=== PATIENT | female | born 1985 | race Caucasian/White ===

== ENCOUNTER 2020-01-12 12:07 | Outpatient (CLI) | payer OTHER, SELFPAY ==
[2020-01-12 12:19] LABS: Hematocrit 47.8 % (35.0-49.0); Hemoglobin 15.9 g/dL (12.0-15.0); Mean Corpuscular HGB Conc 33.3 g/dL (32.0-36.0); Mean Corpuscular Hemoglobin 31.1 pg (27.0-31.0); Mean Corpuscular Volume 93.4 fL (78.0-102.0); Mean Platelet Volume 12.6 fl (9.2-11.8); Platelet Count Result 220 K/mm3 (150-420); Red Blood Count 5.12 M/mm3 (4.20-5.40); Red Cell Distribution Width 12.5 % (11.6-14.4); White Blood Count 14.1 K/mm3 (4.8-10.8)
[2020-01-12 13:44] LABS: Alanine Aminotransferase 83 U/L (14-59); Alkaline Phosphatase 129 U/L (46-116); Anion Gap 10 mmol/L (8-16); Aspartate Amino Transferase 30 U/L (15-37); Bilirubin,Total 0.3 mg/dL (0.00-1.00); Blood Urea Nitrogen 6 mg/dL (7-18); Calcium 9.7 mg/dL (8.5-10.1); Carbon Dioxide 26 mmol/L (21-32); Chloride 100 mmol/L (98-108); Cholesterol 164 mg/dL (0-200); Estimated Glomerular Filt Rate > 60; Glucose 339 mg/dL (70-99); HDL Direct 30 mg/dL (40-60); LDL Cholesterol Calculated 73 mg/dL (<130); Osmolality Calculated 292 mOsm/kg (285-295); Sodium 136 mmol/L (136-145); Total Protein 7.4 g/dL (6.4-8.2); Triglycerides 304 mg/dL (0-150)
[2020-01-13 17:59] LABS: Hemoglobin A1C 10.6 % (<5.7)
[2020-01-13 18:08] LABS: Thyroid Stimulating Hormone 1.76 uIU/mL (0.36-3.74)
[2020-01-19 14:21] LABS: Hepatitis A Antibody IgM Nonreactive; Hepatitis B Core Antibody Nonreactive (Nonreactive); Hepatitis B Surface Antigen Nonreactive (Nonreactive); Hepatitis C Signal to Cutoff 0.01 ratio (<1.00); Hepatitis C Virus Antibody Nonreactive (Nonreactive)
== END 2020-01-12 12:08 | disposition home or self-care (01) ==
LOC: CHSLAB 12:10
PROVIDERS: PCP Family Medicine; Visit Provider Family Medicine
DX: Z76.89 Persons encountering health services in other specified circumstances (principal); R74.01 Elevation of levels of liver transaminase levels; E11.9 Type 2 diabetes mellitus without complications
CPT/HCPCS: 36415; 80053; 80061; 80074; 83036; 84443; 85027

== ENCOUNTER 2020-01-19 08:27 | Outpatient (CLI) | payer OTHER, SELFPAY ==
[2020-01-20 13:52] LABS: SARS-CoV-2 RNA PCR Negative
== END 2020-01-19 08:28 | disposition home or self-care (01) ==
LOC: CHSLAB 08:30
PROVIDERS: PCP Family Medicine; Visit Provider Family Medicine
DX: R53.83 Other fatigue (principal); Z20.828 Contact with and (suspected) exposure to other viral communicable diseases
CPT/HCPCS: 87635; C9803; U0003

== ENCOUNTER 2020-07-17 11:10 | Outpatient (CLI) | payer OTHER, SELFPAY ==
[2020-07-17 12:14] LABS: SARS-CoV-2 RNA PCR Negative (Negative)
== END 2020-07-17 11:11 | disposition home or self-care (01) ==
LOC: CHSLAB 11:14
PROVIDERS: PCP Family Medicine; Visit Provider Family Medicine
DX: R05 Cough (principal); Z20.822 Contact with and (suspected) exposure to COVID-19
CPT/HCPCS: C9803; U0003; U0005

== ENCOUNTER 2021-04-26 16:31 | Outpatient (CLI) | payer OTHER, SELFPAY ==
[2021-04-26 17:29] LABS: SARS-CoV-2 Ag Negative (Negative)
== END 2021-04-26 16:32 | disposition home or self-care (01) ==
LOC: CHSLAB 16:34
PROVIDERS: PCP Family Medicine; Visit Provider Family Medicine
DX: Z20.822 Contact with and (suspected) exposure to COVID-19 (principal)
CPT/HCPCS: 87426; C9803

== ENCOUNTER 2021-05-23 16:21 | Outpatient (CLI) | payer OTHER, SELFPAY ==
[2021-05-23 16:50] LABS: Creatinine Urine 41.85 mg/dL (40-278); MALB Creatinine Ratio 39.9 mg/g (0-30); Microalbumin Urine Random 16.7 mg/L
[2021-05-23 16:52] LABS: Hemoglobin A1C 10.3 % (<5.7)
[2021-05-23 17:01] LABS: Alanine Aminotransferase 40 U/L (14-59); Albumin Level 3.7 g/dL (3.4-5.0); Alkaline Phosphatase 114 U/L (46-116); Anion Gap 11 mmol/L (8-16); Aspartate Amino Transferase 13 U/L (15-37); Bilirubin,Total 0.2 mg/dL (0.00-1.00); Blood Urea Nitrogen 10 mg/dL (7-18); Calcium 9.1 mg/dL (8.5-10.1); Carbon Dioxide 26 mmol/L (21-32); Chloride 97 mmol/L (98-108); Estimated Glomerular Filt Rate > 60; Glucose 292 mg/dL (70-99); Osmolality Calculated 288 mOsm/kg (285-295); Potassium 4.5 mmol/L (3.5-5.1); Sodium 134 mmol/L (136-145); Total Protein 7.4 g/dL (6.4-8.2)
== END 2021-05-23 16:22 | disposition home or self-care (01) ==
LOC: CHSLAB 16:23
PROVIDERS: PCP Family Medicine; Visit Provider Family Medicine
DX: E11.9 Type 2 diabetes mellitus without complications (principal)
CPT/HCPCS: 36415; 80053; 82043; 83036

== ENCOUNTER 2021-11-27 12:38 | Outpatient (CLI) | payer OTHER, SELFPAY ==
--- NOTE | ~2021-11-27 | MMUS_ITS ---
EXAMINATION: MM diagnostic milton BI w arash, US breast LT complete HISTORY: Palpable left breast lump TECHNIQUE: Additional 3-D tomosynthesis images of the breasts were performed and synthetic 2-D images were generated. CAD analysis was submitted and interpreted. High resolution complete left breast ult rasound was performed. COMPARISON: None BREAST PARENCHYMAL COMPOSITION: Breast composed of scattered areas of fibroglandular density FINDINGS: MAMMOGRAPHIC FINDINGS: There are no suspicious masses, calcifications or architectural distortion in the right breast to sug gest malignancy. There is a focal mass in the upper outer quadrant of the left breast. There is asymm etry medially in the left breast in the area of palpable concern on CC view. No suspicious calcificat ions. ULTRASOUND: Complete US of all 4 quadrants of the left breast and retroareolar region was reviewed. In the area o f palpable concern at 10:00 there is skin thickening with complex heterogeneous soft tissue with irre gular margins measuring 2.8 x 2.3 x 0.7 cm. There is mixed posterior attenuation. No internal vascula rity. At 2:00, 5 cm from the nipple in the area of mammographic abnormality there is an oval circumsc ribed hypoechoic mass measuring 2.1 x 1.7 x 0.7 cm. There is mixed posterior attenuation. At 2:00, 7 cm from the nipple there is a 7 mm cyst. There are multiple normal-appearing lymph nodes in the left axilla with fatty hilum. Largest lymph node measures 2.5 cm. IMPRESSION: 1. Complex hypoechoic masses at 10:00 in the area of palpable concern and also at 2:00, 5 cm from the nipple. 2. Ultrasound-guided left breast biopsies recommended. BI-RADS category 4, suspicious findings. Reviewed, dictated and finalized at location A. IMPRESSION: 1. Complex hypoechoic masses at 10:00 in the area of palpable concern and also at 2:00, 5 cm from the nipple. 2. Ultrasound-guided left breast biopsies recommended. BI-RADS category 4, suspicious findings.
== END 2021-11-27 12:39 | disposition home or self-care (01) ==
LOC: CHSIMG 12:39
PROVIDERS: PCP Family Medicine; Visit Provider Family Medicine
DX: N63.22 Unspecified lump in the left breast, upper inner quadrant (principal)
CPT/HCPCS: 76641; 77062; 77066; G0279

== ENCOUNTER 2022-03-04 11:49 | Outpatient (CLI) | payer OTHER, SELFPAY ==
[2022-03-04 12:40] LABS: Strep Group A RT-PCR Not Detected (Negative)
== END 2022-03-04 11:50 | disposition home or self-care (01) ==
LOC: CHSLAB 11:53
PROVIDERS: PCP Nurse Practitioner Family; Visit Provider Nurse Practitioner Family
DX: J02.9 Acute pharyngitis, unspecified (principal)
CPT/HCPCS: 87651

== ENCOUNTER 2022-07-05 11:33 | Outpatient (CLI) | payer OTHER, SELFPAY | END 2022-07-05 11:34 | disposition home or self-care (01) | LOC: CHSLAB 11:34 | PROVIDERS: PCP Family Medicine; Visit Provider Family Medicine | DX: R06.83 Snoring (principal); E11.9 Type 2 diabetes mellitus without complications | CPT/HCPCS: 36415; 83036 ==

== ENCOUNTER 2023-01-27 20:52 | Emergency (ER) | payer OTHER, SELFPAY ==
--- NOTE | ~2023-01-27 | XR_ITS ---
EXAM: XR foot LT min 3V DATE: 01/27/2023 21:37 HISTORY: MEDIAL SIDE PAIN AFTER FALL . COMPARISON: 09/23/2017. FINDINGS: Normal mineralization. No fracture or dislocation. No lytic or blastic lesion. Plantar ent hesopathy. Hallux valgus. Mild degenerative change at the first MTP joint. No erosion or periosteal c hange. Soft tissues within normal limits. IMPRESSION: No acute osseous finding in the left foot. Reviewed, dictated and finalized at location K.
[2023-01-27 20:52] VITALS: BP 132/80; PULSE 72; RESP 20; TEMP 36.6; O2SAT 96
--- NOTE | 2023-01-27 21:46 | ED.GENADULT ---
HPI - General Adult General Chief complaint: Extremity Injury, Lower Stated complaint: L foot injury Time Seen by Provider: 01/27/23 21:25 History of Present Illness HPI narrative: The patient is a 37-year-old woman who tripped yesterday on stairs, at 3:00 p.m., resulting in pain in the left foot at the greater toe and 1st metatarsal. The pain is continued tonight. There is no swelling. She is worried about fracture. She is able to ambulate but with a limp. No tenderness or pain elsewhere in the upper lower extremities or neck or back. No loss of consciousness. Related Data Allergies Allergy/AdvReac Type Severity Reaction Status Date / Time No Known Allergies Allergy Verified 12/11/22 07:17 Review of Systems Review of Systems: All systems reviewed & are unremarkable except as noted in HPI and below Constitutional: Constitutional: Denies chills, Denies excessive sweating, Denies fatigue, Denies fever(s), Denies headache(s) and Denies weakness Eyes: Eyes: Denies change in vision and Denies photophobia ENT: Denies dysphagia, Denies dizziness, Denies headache(s), Denies lip swelling, Denies nasal congestion, Denies sore throat and Denies tongue swelling Cardiovascular: Cardiovascular: Denies chest pain, Denies syncope, Denies rapid heart rate and Denies dyspnea Respiratory: Respiratory: Denies cough, Denies dyspnea and Denies wheezing Gastrointestinal: Gastrointestinal: Denies abdominal pain, Denies constipation, Denies dysphagia, Denies diarrhea, Denies nausea and Denies vomiting Genitourinary: Genitourinary: Denies hematuria, Denies urinary frequency, Denies dysuria and Denies urinary urgency Musculoskeletal: Musculoskeletal: Denies back pain, Denies myalgias, Reports arthralgias ( Left great toe), Denies joint swelling and Denies numbness Integumentary/Breasts: Skin/Breast: Denies pruritus, Denies erythema and Denies rash Neurologic: Denies confusion, Denies dizziness, Denies syncope, Denies headache(s), Denies focal weakness, Denies numbness and Denies weakness Psychiatric: Psychiatric: Denies anxiety and Denies confusion Endocrine: Endocrine: Denies excessive sweating and Denies fatigue Hematologic/Lymphatic: Hematologic/Lymphatic: Denies easy bleeding and Denies easy bruising Allergic/Immunologic: Allergic/Immunologic: Denies lip swelling, Denies tongue swelling and Denies wheezing PMFSH Past Medical History Medical History Hyperlipidemia Overweight Type 2 diabetes mellitus Surgical History Surgical History No history of previous surgery Social History Social History Smoking packs per day: 1 Smoking cigarettes per day: 20.0 Years smoked: 15 Smoking pack-years: 15.00 Smoking status: Current every day smoker Tobacco type: cigarettes Exam Const: General: healthy appearing, no acute distress, alert and well nourished Nutritional Appearance: well nourished Orientation/consciousness: patient oriented x3 Limitations: no limitations HENMT: Head: normal to inspection Ears: external ears normal Face/Nose/Sinus: normal facial exam Face and sinus: normal facial exam Mouth: Yes moist mucous membranes Throat: posterior oropharynx normal Eyes: Conjunctivae: conjunctivae normal Pupils: Equal, round and reactive pupils present EOM: EOMs intact bilaterally Neck: Neck: normal visual inspection and no meningeal signs Chest: Chest palpation & inspection: normal inspection of the chest and no tenderness Resp: Effort & Inspection: normal respiratory effort and not labored Auscultation: clear to auscultation bilaterally, no crackles, no rhonchi and no wheezes Cardio: Rate: regular rate Rhythm: regular rhythm Heart sounds: no murmurs GI: Inspection: non-distended GI Palp: Yes Soft to palpation, No Tenderness to palpation present (GI), No
[2023-01-27 21:54] VITALS: BP 142/90; PULSE 64; RESP 16; TEMP 36.6; O2SAT 97
== END 2023-01-27 21:56 | disposition home or self-care (01) ==
PROVIDERS: Emergency Provider Emergency Medicine; PCP Family Medicine
DX: S90.32XA Contusion of left foot, initial encounter (principal); E78.5 Hyperlipidemia, unspecified; E11.9 Type 2 diabetes mellitus without complications; F17.210 Nicotine dependence, cigarettes, uncomplicated; W10.9XXA Fall (on) (from) unspecified stairs and steps, initial encounter
CPT/HCPCS: 73630; 99283

== ENCOUNTER 2023-08-10 19:50 | Emergency (ER) | payer OTHER, SELFPAY ==
--- NOTE | ~2023-08-10 | XR_ITS ---
EXAMINATION: XR foot LT min 3V DATE: 08/10/2023 20:43 INDICATION: Trauma to the left great toe TECHNIQUE: Dorsoplantar, two oblique and lateral views of the left foot were obtained. COMPARISON: None. FINDINGS: Alignment is normal. No fracture. Mild osteoarthritis at the first metatarsophalangeal and a few tars ometatarsal and interphalangeal joints. Again seen is a likely bunion with mild hypertrophic change a t the medial head of the first metatarsal. Small plantar calcaneal spur. Soft tissues are unremarkabl e. IMPRESSION: 1. No acute osseous abnormality. Reviewed, dictated and finalized at location A.
[2023-08-10 19:53] VITALS: BP 117/81; PULSE 107; RESP 18; TEMP 36.7; O2SAT 98
--- NOTE | 2023-08-10 20:02 | ED.LOWEXIN ---
HPI - Extremity Injury (Lower) General Chief Complaint: Extremity Injury, Lower Stated Complaint: Injury to L Big Toe Time Seen by Provider: 08/10/23 20:01 Source: patient Mode of arrival: ambulatory Limitations: no limitations History of Present Illness HPI Narrative: Patient is a 38-year-old female with a left great toe injury after dropping a bowling ball onto the area last night. She has decreased range of motion and pain in the area of the great toe. MD complaint: foot injury ( Left great toe) Onset (ago): day(s) (2) Injury: Left: toes ( great toe) Type of Injury: other ( blunt force direct injury) Place: other ( bowling alley) Severity: mild Severity scale (1-10): 1 Relieving factors: immobilization Exacerbating factors: movement and palpation Context: direct blow Associated symptoms: swelling and able to partially bear weight Other symptoms: none Treatments prior to arrival: NSAIDS Related Data Allergies Allergy/AdvReac Type Severity Reaction Status Date / Time No Known Allergies Allergy Verified 01/28/23 07:38 Review of Systems Review of Systems: All systems reviewed & are unremarkable except as noted in HPI and below Constitutional: Constitutional: Reports no additional constitutional complaints Eyes: Eyes: Reports no additional eye complaints ENT: Reports system reviewed and no additional complaints, except as documented Cardiovascular: Cardiovascular: Reports no additional cardiovascular complaints Respiratory: Respiratory: Reports no additional respiratory complaints Gastrointestinal: Gastrointestinal: Reports no additional gastrointestinal complaints Genitourinary: Genitourinary: Reports no additional female genitourinary complaints Musculoskeletal: Musculoskeletal: Reports no additional musculoskeletal complaints Integumentary/Breasts: Skin/Breast: Reports system reviewed and no additional complaints, except as docu Neurologic: Reports system reviewed and no additional complaints, except as documented Psychiatric: Psychiatric: Reports no additional psychiatric complaints Endocrine: Endocrine: Reports no additional endocrine complaints Hematologic/Lymphatic: Hematologic/Lymphatic: Reports no additional hematologic/lymphatic complaints Allergic/Immunologic: Allergic/Immunologic: Reports no additional allergic/immunologic complaints [facility] Past Medical History Medical History Hyperlipidemia Overweight Type 2 diabetes mellitus Surgical History Surgical History No history of previous surgery Social History Social History Smoking packs per day: 1 Smoking cigarettes per day: 20.0 Years smoked: 15 Smoking pack-years: 15.00 Smoking status: Current every day smoker Tobacco type: cigarettes Exam Const: General: healthy appearing Nutritional Appearance: well nourished Orientation/consciousness: patient oriented x3 HENMT: Head: normal to inspection Ears: external ears normal Face/Nose/Sinus: Normal external nose present Eyes: Conjunctivae: conjunctivae normal Pupils: Equal, round and reactive pupils present EOM: EOMs intact bilaterally Neck: Neck: normal visual inspection Chest: Chest palpation & inspection: normal inspection of the chest Resp: Effort & Inspection: normal respiratory effort and not labored Auscultation: clear to auscultation bilaterally Cardio: Rate: regular rate Rhythm: regular rhythm Heart sounds: no murmurs GI: Inspection: non-distended GI Palp: Yes Soft to palpation and No Tenderness to palpation present (GI) Auscultation: normal bowel sounds : General: Yes bladder normal to palpation Back/Spine/Pelvis: Back: no CVA tenderness Skin: General skin exam: normal color Rashes: no rashes Wounds: wound noted Other: left great toe has ecchymosis and swelling and tendernes
[2023-08-10 21:12] VITALS: BP 125/82; PULSE 92; RESP 18; TEMP 36.2; O2SAT 97
== END 2023-08-10 21:11 | disposition home or self-care (01) ==
PROVIDERS: Emergency Provider Emergency Medicine; PCP Family Medicine
DX: S90.32XA Contusion of left foot, initial encounter (principal); W21.09XA Struck by other hit or thrown ball, initial encounter; E78.5 Hyperlipidemia, unspecified; E11.9 Type 2 diabetes mellitus without complications; F17.210 Nicotine dependence, cigarettes, uncomplicated
CPT/HCPCS: 73630; 99283

== ENCOUNTER 2024-03-17 16:56 | Outpatient (CLI) | payer OTHER, SELFPAY ==
[2024-03-17 18:04] LABS: Alanine Aminotransferase 100 U/L (14-59); Albumin Level 3.8 g/dL (3.4-5.0); Alkaline Phosphatase 101 U/L (46-116); Anion Gap 10 mmol/L (4-12); Aspartate Amino Transferase 37 U/L (15-37); Bilirubin,Total 0.2 mg/dL (0.00-1.00); Blood Urea Nitrogen 8 mg/dL (7-18); Calcium 9.5 mg/dL (8.5-10.1); Carbon Dioxide 28 mmol/L (21-32); Chloride 102 mmol/L (98-108); Cholesterol 172 mg/dL (0-200); Estimated Glomerular Filt Rate > 60; Glucose 159 mg/dL (70-99); HDL Direct 40 mg/dL (40-60); LDL Cholesterol Calculated 48 mg/dL (<130); Magnesium 1.5 mg/dL (1.8-2.4); Osmolality Calculated 291 mOsm/kg (285-295); Sodium 140 mmol/L (136-145); Total Protein 7.2 g/dL (6.4-8.2); Triglycerides 421 mg/dL (0-150); Vitamin B12 441 pg/mL (193-986)
[2024-03-17 18:07] LABS: LDL Cholesterol Direct 81 mg/dL (0-130)
[2024-03-19 04:14] LABS: Vitamin D 25 Hydroxy 32 ng/mL (30-100)
== END 2024-03-17 16:57 | disposition home or self-care (01) ==
LOC: CHSLAB 16:57
PROVIDERS: PCP Nurse Practitioner Family; Visit Provider Nurse Practitioner Family
DX: E11.9 Type 2 diabetes mellitus without complications (principal); E78.5 Hyperlipidemia, unspecified; Z79.899 Other long term (current) drug therapy
CPT/HCPCS: 36415; 80053; 80061; 82306; 82607; 83721; 83735

== ENCOUNTER 2024-07-23 07:07 | Outpatient (CLI) | payer OTHER, SELFPAY ==
--- OUTSIDE RECORDS SUMMARY | 2024-07-23 07:10 | XMS_ITS | Referral Summary ---
Author Organization [facility] Virtual Care Address [address] [place] [phone] Phone Care Team Providers Care Sole Molder Name Role Phone Germain Stearns DO Primary Care Provider Allergies No known active allergies Medications buPROPion SR (WELLBUTRIN SR) 150 mg 12 hr tablet Take 1 tablet (150 mg total) by mouth every 12 (twelve) hours 2 Active levonorgestreL (MIRENA) IUD 20 mcg by intrauterine route Active metFORMIN (GLUCOPHAGE) 1,000 mg tablet Take 1 tablet (1,000 mg total) by mouth 2 (two) times a day 2 Active Trulicity 3 mg/0.5 mL pen injector [address] (PROTONIX) 40 mg EC tablet TAKE 1 TABLET B Y MOUTH EVERY MORNING FOR 6 WEEKS 3 Active Active Problems No known active problems Social History Tobacco Use Types Packs/Day Years Used Date Smoking Tobacco: Former Cigarettes Tobacco Cessation:Counseling Given: Not Answered PHQ-2 Answer Date Recorded PHQ-2 Total Score (If total score is 3 or more points, staff should administer the PHQ-9) 0 01/01/2023 Comments No Sex and Gender Information Value Date Recorded Sex Assigned at Not on file Legal Sex Female 11:22 AM CDT Gender Identity Not on file Sexual Orientation Not on file Last Filed Vital Signs Vital Sign Reading Time Taken Comments Blood Pressure 126/80 01/01/2023 8:10 AM CDT Pulse 90 01/01/2023 8:10 AM CDT Temperature 37.3 C (99.1 F) 12/12/2021 12:25 PM CDT Respiratory Rate 16 12/12/2021 12:25 PM CDT Oxygen Saturation 100% 12/12/2021 12:25 PM CDT Inhaled Oxygen Concentration - - Weight 92.1 kg (203 lb 1.6 oz) 01/01/2023 8:10 A M CDT Height 162.6 cm (5' 4 ) 03/12/2024 2:49 PM LABOR/EXCAVATOR Body Mass Index 34.86 01/01/2023 8:10 AM CDT Plan of Treatment Not on file Medical Devices Implanted Type Area Rider Ticket Worker Device Identifier Shelf Expiration Date Model / Serial / Lot Bard Peripheral Vascular Ultraclip Bard 17ga 12cm 2 Trigger Permanent Ultrasound [id number] - [id number] - [id number] Implanted:Qty: 1 on 12/12/2021 by Dimitri Garcia MD at [facility] Breast Left: Breast Bard Peripheral Vascular 05/04/2024 [id number] / [id number] / Procedures Procedure Name Priority Date/Time Associated Diagnosis Comments PAP AND HPV, REFLEX TO HPV GENOTYPES Routine 01/01/2023 9:28 AM CDT Well woman exam from Last 3 Months or Most Recently Relevant to Health Maintenance Results * Pap and HPV, reflex to HPV Genotypes (01/01/2023 9:28 AM CDT) CLINICAL INFORMATION: [facility] Comment:None given LMP [facility] [employer] [facility] Comment:None given Previous Pap [facility] Comment:None given Prev. Bx [facility] [employer] [facility] Comment:None given SOURCE: [employer] [facility] Comment:Cervix, Endocervix Pap, specimen adequacy [facility] Comment: Satisfactory for evaluation. Endocervical/transformation zone component present. Age and/or menstrual status not provided HPV interp [facility] Comment: Cytology Results: Negative for intraepithelial lesion or malignancy. Wardrobe Specialist [facility] Comment: BES, CT(ASCP) CT screening location: [place] [address] [place] [id number] Comment [facility] [employer] [facility] Comment: EXPLANATORY NOTE: The Pap is a screening test for cervical cancer. It is not a diagnostic test and is subject to false negative and false positive results. It is most reliable when a satisfactory sample, regularly obtained, is submitted with relevant clinical findings and history, and when the Pap result is evaluated along with historic and current clinical information. EFFECTIVE MARCH 03, 2023, the version of ThinPrep you ordered, commonly known as manual ThinPrep, will be DISCONTINUED. An alternative form of ThinPrep, called ThinPrep Imaging, will continue to be available. For a copy of the client communication (TIS Client Letter) showing TIS test codes, see [email or web address], and navigate to Well-Woman>Physician Materials>TIS Client Letter. You can also call for test code assistance. Human papillomavirus DNA, High Risk E6/E7 Not Detected NOT DETECTED [employer] /Olamide COLLIER Comment: Not Detected High Risk HPV types (16,18,31,33,35,39,45,51,52, 56,58,59,66,68) were not detected. Other HPV types which cause anogenital lesions may be present. The significance of the other types of HPV in malignant processes has not been established. Methodology: Real Time PCR Thin prep 01/01/2023 9:28 AM CDT 01/02/2023 2:54 AM CDT Shelbie King PREMIX OPERATOR [facility] CYTOLOGY ORDERABLES [facility] al Result [facility] [address] [place] [address] Beni Hightower/[place] [address] [facility] [place] [phone] from Last 3 Months or Most Recently Relevant to Health Maintenance Insurance [employer] Care Teams Sole Molder Relationship Specialty Start Date End Date Germain Stearns DO [address] [place] [address] PCP - General 12/12/21
--- OUTSIDE RECORDS SUMMARY | 2024-07-23 07:10 | XMS_ITS | Clinical Summary ---
Author Organization [facility] Address [address] [place] [address] Care Team Providers Care Ore Bridge Operator Name Role Phone Susan Styles MD Primary Care Provider [phone] Allergies No known active allergies Medications metFORMIN 1000 MG tabletIndicatio ns:Diabetes Mellitus,states last took this med 2 weeks ago 1,000 mg 2 (two) times daily with meals. Indications: Diabetes, states last took this med 2 weeks ago 3 9 Active levonorgestrel (MIRENA, 52 MG,) 20 MCG/24HR IUDIndications: control 20 mcg by Intrauterine route. Indications: control Active traMADol 50 MG tabletIndicatio ns:Acute Pain < 7 Day Supply Take 1 tablet (50 mg total) by mouth every 6 (six) hours as needed for Pain. Indications: Acute Pain < 7 Day Supply 5 tablet 0 Active Acetaminophen 500 MG Cap Take 1 tablet by mouth every 6 (six) hours as needed. 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 Condyloma 05/13/2019 Family History * Patient is adopted Medical History Relation Comments COPD Mother Diabetes Mother Relation Status Comments Father Alive Mother Alive Social History Tobacco Use Types Packs/Day Years Used Date Smoking Tobacco: Every Day Cigarettes 1 14 Smokeless Tobacco: Never Alcohol Use Standard Drinks/Week Comments Yes 0 (1 standard drink = 0.6 oz pur e alcohol) sometimes Comments No Sex and Gender Information Value Date Recorded Sex Assigned at Not on file Legal Sex Female 9:22 PM BEAUTY PARLOR CLEANER Gender Identity Not on file Sexual Orientation Not on file Last Filed Vital Signs Vital Sign Reading Time Taken Comments Blood Pressure 121/78 05/13/2019 4:30 PM BEAUTY PARLOR CLEANER Pulse 85 05/13/2019 4:30 PM BEAUTY PARLOR CLEANER Temperature 36.2 C (97.2 F) 05/13/2019 3:00 PM BEAUTY PARLOR CLEANER Respiratory Rate 16 05/13/2019 4:30 PM BEAUTY PARLOR CLEANER Oxygen Saturation 94% 05/13/2019 4:30 PM BEAUTY PARLOR CLEANER Inhaled Oxygen Concentration - - Weight 88.5 kg (195 lb) 05/06/2019 10:55 AM BEAUTY PARLOR CLEANER Height 162.6 cm (5' 4 ) 05/06/2019 10:56 AM BEAUTY PARLOR CLEANER Body Mass Index 33.47 05/06/2019 10:55 AM BEAUTY PARLOR CLEANER Plan of Treatment Health Maintenance Due Date Last Done Comments Annual Physical 1989 Pneumococcal Vaccine: Pediat rics (0 to 5 Years) and At-Risk Patients (6 to 49 Years) (1 of 2 - PCV) 1992 Hepatitis C 2004 DTaP, Tdap and Td Vaccines ( 1 - Tdap) 2005 Hepatitis B Vaccines (1 of 3 - 19+ 3-dose series) 2005 Cervical Cancer Screening Pa p with HPV Testing (Age 30 to 64) Every 5 Years 2016 Cervical Cancer Screening Pa p Smear (Age 30 to 64) Every 3 Years 09/23/2017 09/23/2014 Cervical Cancer Screening with HPV 09/23/2017 COVID-19 Vaccine (2023-2 5 season) 2023 HPV Vaccines Aged Out No longer eligi ble based on patient's age to complete this topic Meningococcal B Vaccine Aged Out No l onger eligible based on patient's age to complete this topic Meningococcal Vaccine Aged Out No adrienne rufina eligible based on patient's age to complete this topic RSV Immunizations Under 20 Months Aged Out No longer eligible based on patient's age to complete this topic Procedures Procedure Name Priority Date/Time Associated Diagnosis Comments THINPREP IMAGING SYSTEM PAP Routine 09/23/2014 12:00 AM CDT from Last 3 Months or Most Recently Relevant to Health Maintenance Results * (ABNORMAL) THINPREP IMAGING SYSTEM PAP (09/23/2014 12:00 AM CDT) THIN PREP PAP (A) [facility] UP TO EPIC CONVERSION Comment: Patient Name: GLORIA GARCIA Specimen #: [id number] Procedure Date: 09/23/2014 /Age: 4 1985 (Age: 29) Gender: F Accessioned: 09/27/2014 Address: [address] [place] [id number] Reported: 09/30/2014 Encounter: [id number] [facility] Physician(s): KRISTINE URENA, INDUSTRIAL CONTROLLER / WASHING MACHINE LOADER AND PULLER : CYTOPATHOLOGY - GYNECOLOGIC REPORT Diagnosis: TEST NAME: THINPREP PAP WITH CRYPTOLOGIC TECHNICIAN TECHNICAL, REFLEX HPV-ASCUS ONLY INTERPRETATION/RESULT: EPITHELIAL CELL ABNORMALITY: ATYPICAL SQUAMOUS CELLS OF UNDETERMINED SIGNIFICANCE. SPECIMEN FORWARDED TO MICROBIOLOGY FOR FURTHER HPV DNA EVALUATION. STATEMENT OF ADEQUACY: SATISFACTORY FOR EVALUATION; ENDOCERVICAL/TRANSFORMATION ZONE COMPONENT PRESENT. [facility] DEN GARCIA MD [facility] [place]/09/30/2014 Report Electronically Signed Procedures/Addenda HPV DNA: ABNORMAL Interpretation: HPV DNA, HIGH RISK: POSITIVE THIS HIGH-RISK HPV TEST DETECTS FOURTEEN HIGH-RISK TYPES (16, 18, 31, 33, 35, 39, 45, 51, 52, 56, 58, 59, 66, 68) WITHOUT DIFFERENTIATION. Monserrat Cortez HPV DNA Electronically Signed [facility]/ 10/07/2014 Specimen: THINPREP PAP WITH CRYPTOLOGIC TECHNICIAN TECHNICAL, REFLEX HPV-ASCUS ONLY Clinical Diagnosis and History Date of Last Menstrual Period: MIRENA Specimen Source: Cervical Other Clinical Conditions: OTHER: PREVIOUS PAP NORMAL PAP SMEARS ARE SCREENING TESTS SUBJECT TO BOTH FALSE NEGATIVE AND FALSE POSITIVE RESULTS EVIDENCED BY DATA PUBLISHED IN THE MEDICAL LITERATURE. YOUR PATIENT'S RESULT SHOULD BE INTERPRETED IN THIS CONTEXT, TOGETHER WITH THE PATIENT'S HISTORY AND CLINICAL FINDINGS. 09/23/2014 Narrative [facility] TO EPIC CONVERSION - 09/23/2014 12:00 AM CDT [AUTO]: This patient was manually matched. us Kristine Urena NP PATHOLOGY/CYTOLOGY ORDERABLES E dited Result - Final [facility] TO EPIC CONVERSION from Last 3 Months or Most Recently Relevant to Health Maintenance Insurance MEDICAID Advance Directives * Full Code (Latest Code Status on File) Date Activated Date Inactivated Comments 05/13/2019 4:01 PM 05/13/2019 6:48 PM Care Teams Ore Bridge Operator Relationship Specialty Start Date End Date Susan Styles MD [address] [place] [id number] PCP - General INTERNAL MEDICINE 12/28/18
--- OUTSIDE RECORDS SUMMARY | 2024-07-23 07:10 | XMS_ITS | Clinical Summary ---
Author Organization [facility] Virtual Care Address [address] [place] [phone] Phone Care Team Providers Care Art Librarian Name Role Phone Germain Stearns DO Primary [...] Active Active Problems No known active problems Surgical History Surgery Date Site/Laterality Comments BREAST BIOPSY 04/07/2009 - 04/06/2010 Left benign needle bx done in dr office, no scar BREAST BIOPSY 12/12/2021 Left benign uls guided bx CHOLECYSTECTOMY Medical History Medical History Date Comments Smoking Type 2 diabetes mellitus (HCC) 2018 Family History * Patient is adopted Medical History Relation Name Comments Breast cancer Maternal Grandmother Cervical cancer Maternal Grandmother Ovarian cancer Neg Hx Thyroid cancer Neg Hx Relation Name Status Comments Maternal Grandmother Social History Tobacco Use Types Packs/Day Years [...] on file Sexual Orientation Not on file Obstetrics History Para Term AB IAB SAB Ectopic Multiple Livin g Live Births 2 2 2 2 2 Date Outcome GA Total Labor Labor/2nd/3rd Weight Sex Type Anes PTL Shanti A1 A5 Name Clin 2008 Term Vaginal Living 2009 Term Vaginal Living Last Filed Vital Signs Vital Sign Reading [...] cm (5' 4 ) 03/12/2024 2:49 PM OIL CHANGER Body Mass Index 34.86 01/01/2023 8:10 AM CDT Plan of Treatment Health Maintenance Due Date Last Done Comments Hepatitis C Screening 1986 DTaP/Tdap/Td Vaccine (1 - Tdap) 1997 Varicella Vaccines (1 of 2 - 13+ 2-dose series) 08/05/1999 Hepatitis B Screening 2004 HPV Vaccines (2 - 3-dose SCD M series) 02/24/2020 01/27/2020 Influenza Vaccine (#1) 2023 Cervical Cancer Screening 01/02/2024 01/01/2023 Depression Screening 01/02/2024 01/01/2023 Regular Well Visit/Exam 18-64 01/02/2024 01/01/2023 Pneumococcal vaccine <65 Aged Out No longer eligible based on patient's age to complete this topic Medical Devices Implanted Type Area Service Order Clerk Device Identifier Shelf Expiration Date Model / Serial / Lot Bard Peripheral Vascular Ultraclip Bard 17ga 12cm 2 Trigger Permanent Ultrasound [id number] - [id number] - [id number] Implanted:Qty: 1 on 12/12/2021 by Dimitri Garcia MD at [facility] Breast Left: Breast Bard Peripheral Vascular 05/04/2024 [id number] / [id number] / Procedures Procedure Name Priority Date/Time Associated Diagnosis Comments PAP AND HPV, REFLEX TO HPV GENOTYPES Routine 01/01/2023 9:28 AM CDT Well woman exam from Last 3 Months or Most Recently Relevant to Health Maintenance Results * Pap and HPV, reflex to HPV Genotypes (01/01/2023 9:28 AM CDT) CLINICAL INFORMATION: [facility] Comment:None given LMP [facility] Comment:None given Previous Pap [facility] Comment:None given Prev. Bx [facility] [employer] Comment:None given SOURCE: [facility] Comment:Cervix, Endocervix Pap, specimen adequacy [facility] Comment: Satisfactory for evaluation. Endocervical/transformation zone component present. Age and/or menstrual status not provided HPV interp [facility] Comment: Cytology Results: Negative for intraepithelial lesion or malignancy. Product Scientist [facility] Comment: BES, CT(ASCP) CT screening location: [place] [address] [place] [address] Comment [facility] Comment: EXPLANATORY NOTE: The Pap is [...] Client Letter) showing TIS test codes, see www.[email or web address]/Resources, and navigate to Well-Woman>Physician Materials>TIS Client Letter. You can also call for test code assistance. Human papillomavirus DNA, High Risk E6/E7 Not Detected NOT DETECTED [facility] /Olamide [facility] Comment: Not Detected High Risk HPV types (16,18,31,33,35,39,45,51,52, 56,58,59,66,68) were not detected. Other HPV types which cause anogenital lesions may be present. The significance of the other types of HPV in malignant processes has not been established. Methodology: Real Time PCR Thin prep 01/01/2023 9:28 AM CDT 01/02/2023 2:54 AM CDT Shelbie King RELAY ADJUSTER LAB CYTOLOGY ORDERABLES Fin al Result [facility] [address] [place] [address] Viigo/[place] [address] [facility] [place] [address] from Last 3 Months or Most Recently Relevant to Health Maintenance Insurance [facility] Care Teams Art Librarian Relationship Specialty Start Date End Date Germain Stearns DO [address] [place] [address] PCP - General 12/12/21
--- OUTSIDE RECORDS SUMMARY | 2024-07-23 07:10 | XMS_ITS | Encounter Summary ---
Author Organization [facility] Healthcare Address [address] [place] [address] Care Team Providers Care Head Grower Name Role Phone Gremain Stearns DO Primary Care Provider Encounter Details Date Type Department Care Team (Late st Contact Info) Description 01/16/2022 Telephone [facility] [address] [place] [phone] Nell Reyes, MARISA Social History Tobacco Use Types Packs/Day Years Used Date Smoking Tobacco: Never Assessed Comments No Sex and Gender Information Value Date Recorded Sex Assigned at Not on file Legal Sex Female 11:22 AM CDT Gender Identity Not on file Sexual Orientation Not on file documented as of this encounter Plan of Treatment Not on file documented as of this encounter Visit Diagnoses Not on filedocumented in this encounter Care Teams Head Grower Relationship Specialty Start Date End Date Germain Stearns DO [address] [place] [address] PCP - General 12/12/21 documented as of this encounter
[2024-07-23 07:20] LABS: Basophils Absolute Auto 0.03 K/mm3 (0.00-0.10); Basophils Percent Auto 0.3 % (0.0-1.0); Eosinophils Absolute Auto 0.13 K/mm3 (0.02-0.50); Eosinophils Percent Auto 1.3 % (1.0-6.0); Hematocrit 38.5 % (35.0-49.0); Hemoglobin 11.8 g/dL (12.0-15.0); Immature Granulocyte Absolute 0.03 K/mm3 (0.00-0.00); Immature Granulocyte Percent A 0.3 % (0.0-0.0); Lymphocytes Absolute Auto 1.85 K/mm3 (1.10-4.50); Lymphocytes Percent Auto 18.9 % (18.0-42.0); Mean Corpuscular HGB Conc 30.6 g/dL (32-36); Mean Corpuscular Volume 84.8 fL (78.0-102.0); Mean Platelet Volume 11.7 fl (9.2-11.8); Monocytes Absolute Auto 0.72 K/mm3 (0.10-0.90); Monocytes Percent Auto 7.4 % (2.0-11.0); Neutrophils Absolute Auto 7.01 K/mm3 (1.70-7.20); Neutrophils Percent Auto 71.8 % (50.0-70.0); Platelet Count Result 256 K/mm3 (150-420); Red Blood Count 4.54 M/mm3 (4.20-5.40); Red Cell Distribution Width 13.8 % (11.6-14.4); White Blood Count 9.8 K/mm3 (4.8-10.8)
[2024-07-23 07:30] LABS: Creatinine Urine 132.35 mg/dL (40-278); MALB Creatinine Ratio 9.8 mg/g (0-30); Microalbumin Urine Random < 13.0 mg/L
[2024-07-23 07:31] LABS: Hemoglobin A1C 7.7 % (<5.7)
[2024-07-23 07:56] LABS: Alanine Aminotransferase 48 U/L (14-59); Albumin Level 3.7 g/dL (3.4-5.0); Alkaline Phosphatase 115 U/L (46-116); Anion Gap 8 mmol/L (4-12); Aspartate Amino Transferase 26 U/L (15-37); Bilirubin,Total 0.3 mg/dL (0.00-1.00); Blood Urea Nitrogen 11 mg/dL (7-18); Calcium 9.5 mg/dL (8.5-10.1); Carbon Dioxide 29 mmol/L (21-32); Chloride 102 mmol/L (98-108); Cholesterol 104 mg/dL (0-200); Creatine Kinase 31 U/L (26-192); Estimated Glomerular Filt Rate > 60; Glucose 196 mg/dL (70-99); HDL Direct 43 mg/dL (40-60); LDL Cholesterol Calculated 24 mg/dL (<130); Magnesium 1.6 mg/dL (1.8-2.4); Osmolality Calculated 292 mOsm/kg (285-295); Potassium 4.4 mmol/L (3.5-5.1); Sodium 139 mmol/L (136-145); Total Protein 7.5 g/dL (6.4-8.2); Triglycerides 183 mg/dL (0-150)
[2024-07-23 07:58] LABS: Thyroid Stimulating Hormone Reflex 5.39 u/IU/mL (0.36-3.74)
[2024-07-23 08:15] LABS: Free T4 Free Thyroxine Reflex 0.97 ng/dL (0.76-1.46)
[2024-07-25 07:19] LABS: Hepatitis B Surface Antigen NON-REACTIVE (NON-REACTIVE)
[2024-07-25 07:38] LABS: Hepatitis A Antibody IgM NON-REACTIVE (NON-REACTIVE); Hepatitis B Core Antibody NON-REACTIVE (NON-REACTIVE); Hepatitis C Virus Antibody NON-REACTIVE (NON-REACTIVE)
== END 2024-07-23 07:08 | disposition home or self-care (01) ==
LOC: CHSLAB 07:08
PROVIDERS: PCP Nurse Practitioner Family; Visit Provider Nurse Practitioner Family
DX: Z00.00 Encounter for general adult medical examination without abnormal findings (principal); E11.9 Type 2 diabetes mellitus without complications; R25.2 Cramp and spasm; R74.01 Elevation of levels of liver transaminase levels; E78.5 Hyperlipidemia, unspecified
CPT/HCPCS: 36415; 80053; 80061; 80074; 82043; 82550; 83036; 83735; 84439; 84443; 85025

== ENCOUNTER 2024-07-30 16:41 | Outpatient (NON) | payer OTHER, SELFPAY ==
--- OUTSIDE RECORDS SUMMARY | 2024-07-30 16:43 | XMS_ITS | Encounter Summary ---
Author Organization [facility] Healthcare Address [address] [place] [address] Care Team Providers Care Oyster Tonger Name Role Phone Germain Stearns DO Primary Care Provider Encounter Details Date Type Department Care Team (Late st Contact Info) Description 01/16/2022 Telephone [facility] [address] [place] [phone] Nell Reyes, MARISA Social History Tobacco Use [...] on filedocumented in this encounter Care Teams Oyster Tonger Relationship Specialty Start Date End Date Germain Stearns DO [address] [place] [address] PCP - General 12/12/21 documented as of this encounter
--- OUTSIDE RECORDS SUMMARY | 2024-07-30 16:43 | XMS_ITS | Clinical Summary ---
Author Organization [facility] Virtual Care Address [address] [place] [phone] Phone Care Team Providers Care Shoer Name Role Phone Germain Stearns DO Primary [...] cm (5' 4 ) 03/12/2024 2:49 PM CLIENT ACCOUNT REPRESENTATIVE Body Mass Index 34.86 01/01/2023 8:10 AM CDT Plan of Treatment Health Maintenance Due Date Last Done Comments Hepatitis C Screening 1986 DTaP/Tdap/Td Vaccine (1 - Tdap) 1997 Varicella Vaccines (1 of 2 - 13+ 2-dose series) 08/05/1999 Hepatitis B Screening 2004 HPV Vaccines (2 - 3-dose SCD M series) 02/24/2020 01/27/2020 Cervical Cancer Screening 01/02/2024 01/01/2023 Depression Screening 01/02/2024 01/01/2023 Regular Well Visit/Exam 18-64 01/02/2024 01/01/2023 Influenza Vaccine (Season Ended) 2024 Pneumococcal vaccine <65 Aged Out No longer eligible based on patient's age to complete this topic Medical Devices Implanted Type Area Terrazzo Journeyman Device Identifier Shelf Expiration Date Model / Serial / Lot Bard Peripheral Vascular Ultraclip Bard 17ga 12cm 2 Trigger Permanent Ultrasound [id number] - [id number] - [id number] Implanted:Qty: 1 on 12/12/2021 by Dimitri Garcia MD at [facility] Breast Left: Breast Bard Peripheral Vascular 05/04/2024 [id number] / [id number] / Procedures Procedure Name Priority Date/Time Associated Diagnosis Comments PAP AND HPV, REFLEX TO HPV GENOTYPES Routine 01/01/2023 9:28 AM CDT Well woman exam from Last 3 Months or Most Recently Relevant to Health Maintenance Results * Pap and HPV, reflex to HPV Genotypes (01/01/2023 9:28 AM CDT) CLINICAL INFORMATION: [facility] Comment:None given LMP [facility] Comment:None given Previous Pap [facility] Comment:None given Prev. Bx [facility] Comment:None given SOURCE: [facility] Comment:Cervix, Endocervix Pap, specimen adequacy [facility] Comment: Satisfactory for evaluation. Endocervical/transformation zone component present. Age and/or menstrual status not provided HPV interp [facility] Comment: Cytology Results: Negative for intraepithelial lesion or malignancy. Fondant Cooker Que [facility] Comment: BES, CT(ASCP) CT screening location: [place] [address] [place] [address] Comment [facility] Comment: EXPLANATORY NOTE: The Pap is a [...] Client Letter) showing TIS test codes, see [email or web address]/Resources, and navigate to Well-Woman>Physician Materials>TIS Client Letter. You can also call for test code assistance. Human papillomavirus DNA, High Risk E6/E7 Not Detected NOT DETECTED [facility] /Olamide [facility] Comment: Not Detected High Risk HPV types (16,18,31,33,35,39,45,51,52, 56,58,59,66,68) were not detected. Other HPV types which cause anogenital lesions may be present. The significance of the other types of HPV in malignant processes has not been established. Methodology: Real Time PCR Thin prep 01/01/2023 9:28 AM CDT 01/02/2023 2:54 AM CDT Shelbie King INTEGRATED CIRCUITS INSPECTOR LAB CYTOLOGY ORDERABLES Fin al Result [facility] [address] [place] [address] Shibumi/[place] [address] [place] [address] from Last 3 Months or Most Recently Relevant to Health Maintenance Insurance [facility] Care Teams Shoer Relationship Specialty Start Date End Date Germain Stearns DO [address] [place] [address] PCP - General 12/12/21
--- OUTSIDE RECORDS SUMMARY | 2024-07-30 16:43 | XMS_ITS | Referral Summary ---
Author Organization [facility] Virtual Care Address [address] [place] [phone] Phone Care Team Providers Care Stepdown Nurse Name Role Phone Germain Stearns DO Primary [...] cm (5' 4 ) 03/12/2024 2:49 PM EPIC ANESTHESIA ANALYST Body Mass Index 34.86 01/01/2023 8:10 AM CDT Plan of Treatment Not on file Medical Devices Implanted Type Area Emblem Drawer In Device Identifier Shelf Expiration Date Model / Serial / Lot Bard Peripheral Vascular Ultraclip Bard 17ga 12cm 2 Trigger Permanent Ultrasound [id number] - [id number] - [id number] Implanted:Qty: 1 on 12/12/2021 by Dimitri Garcia MD at [facility] Breast Left: Breast Bard Peripheral Vascular 05/04/2024 [id number] / [id number] / Procedures Procedure Name Priority Date/Time Associated Diagnosis Comments PAP AND HPV, REFLEX TO HPV GENOTYPES Routine 01/01/2023 9:28 AM CDT Well woman exam from Last 3 Months or Most Recently Relevant to Health Maintenance Results * Pap and HPV, reflex to HPV Genotypes (01/01/2023 9:28 AM CDT) CLINICAL INFORMATION: [facility] Comment:None given LMP [facility] Comment:None given Previous Pap [facility] Comment:None given Prev. Bx [facility] Comment:None given SOURCE: [facility] [employer] [facility] Comment:Cervix, Endocervix Pap, specimen adequacy [facility] Comment: Satisfactory for evaluation. Endocervical/transformation zone component present. Age and/or menstrual status not provided HPV interp [facility] Comment: Cytology Results: Negative for intraepithelial lesion or malignancy. Oracle Ebs Consultant Harpreet [facility] Comment: BES, CT(ASCP) CT screening location: [place] [address] [place] [id number] Comment [facility] Comment: EXPLANATORY NOTE: The Pap is [...] Client Letter) showing TIS test codes, see www.[employer]/Resources, and navigate to Well-Woman>Physician Materials>TIS Client Letter. You can also call for test code assistance. Human papillomavirus DNA, High Risk E6/E7 Not Detected NOT DETECTED [facility] /Olamide [facility] Comment: Not Detected High Risk HPV types (16,18,31,33,35,39,45,51,52, 56,58,59,66,68) were not detected. Other HPV types which cause anogenital lesions may be present. The significance of the other types of HPV in malignant processes has not been established. Methodology: Real Time PCR Thin prep 01/01/2023 9:28 AM CDT 01/02/2023 2:54 AM CDT Shelbie King STEEL HANGER LAB CYTOLOGY ORDERABLES [facility] al Result [facility] [address] [place] [address] Beni Hightower/[place] [address] [address] [place] [address] from Last 3 Months or Most Recently Relevant to Health Maintenance Insurance [facility] [facility] Care Teams Stepdown Nurse Relationship Specialty Start Date End Date Germain Stearns DO [address] [place] [address] PCP - General 12/12/21
--- OUTSIDE RECORDS SUMMARY | 2024-07-30 16:43 | XMS_ITS | Clinical Summary ---
Author Organization [facility] Address [address] [place] [address] Care Team Providers Care Fitness Centre Manager Name Role Phone Susan Styles MD Primary Care Provider [phone] Allergies No known active allergies Medications metFORMIN [...] on file Legal Sex Female 9:22 PM WILDLIFE OFFICER Gender Identity Not on file Sexual Orientation Not on file Last Filed Vital Signs Vital Sign Reading Time Taken Comments Blood Pressure 121/78 05/13/2019 4:30 PM WILDLIFE OFFICER Pulse 85 05/13/2019 4:30 PM WILDLIFE OFFICER Temperature 36.2 C (97.2 F) 05/13/2019 3:00 PM WILDLIFE OFFICER Respiratory Rate 16 05/13/2019 4:30 PM WILDLIFE OFFICER Oxygen Saturation 94% 05/13/2019 4:30 PM WILDLIFE OFFICER Inhaled Oxygen Concentration - - Weight 88.5 kg (195 lb) 05/06/2019 10:55 AM WILDLIFE OFFICER Height 162.6 cm (5' 4 ) 05/06/2019 10:56 AM WILDLIFE OFFICER Body Mass Index 33.47 05/06/2019 10:55 AM WILDLIFE OFFICER Plan of Treatment Health Maintenance Due Date Last Done Comments Annual Physical 1989 Hepatitis C 2004 DTaP, Tdap and Td Vaccines ( 1 - Tdap) 2005 Hepatitis B Vaccines (1 of 3 - 19+ 3-dose series) 2005 Pneumococcal Vaccine: Pediat rics (0 to 5 Years) and At-Risk Patients (6 to 49 Years) (1 of 2 - PCV) 2005 Cervical Cancer Screening Pa p with [...] Comment: Patient Name: GLORIA GARCIA Specimen #: [id number] Procedure Date: 09/23/2014 /Age: 5 1985 (Age: 29) Gender: F Accessioned: 09/27/2014 Address: [address] [place] [address] Reported: 09/30/2014 Encounter: [id number] Location: [facility] Physician(s): KRISTINE URENA, POCKET MACHINE OPERATOR / TRANSITION MGR : CYTOPATHOLOGY - GYNECOLOGIC REPORT Diagnosis: TEST NAME: THINPREP PAP WITH BLOW MOLD MACHINE OPERATOR, REFLEX HPV-ASCUS ONLY INTERPRETATION/RESULT: EPITHELIAL CELL ABNORMALITY: ATYPICAL SQUAMOUS CELLS OF UNDETERMINED SIGNIFICANCE. SPECIMEN FORWARDED TO MICROBIOLOGY FOR FURTHER HPV DNA EVALUATION. STATEMENT OF ADEQUACY: SATISFACTORY FOR EVALUATION; ENDOCERVICAL/TRANSFORMATION ZONE COMPONENT PRESENT. [facility] GARCIA MD [facility] [place]/09/30/2014 Report Electronically Signed Procedures/Addenda HPV DNA: ABNORMAL Interpretation: HPV DNA, HIGH RISK: POSITIVE THIS HIGH-RISK HPV TEST DETECTS FOURTEEN HIGH-RISK TYPES (16, 18, 31, 33, 35, 39, 45, 51, 52, 56, 58, 59, 66, 68) WITHOUT DIFFERENTIATION. Monserrat Cortez HPV DNA Electronically Signed [facility]/ 10/07/2014 Specimen: THINPREP PAP WITH BLOW MOLD MACHINE OPERATOR, REFLEX HPV-ASCUS ONLY Clinical Diagnosis and History [...] 4:01 PM 05/13/2019 6:48 PM Care Teams Fitness Centre Manager Relationship Specialty Start Date End Date Susan Styles MD [address] [place] [address] PCP - General INTERNAL MEDICINE 12/28/18
[2024-07-31 18:47] LABS: Bacterial Vaginosis NEGATIVE (NEGATIVE)
== END 2024-07-30 16:42 | disposition home or self-care (01) ==
PROVIDERS: PCP Nurse Practitioner Family; Visit Provider Nurse Practitioner Family
DX: N89.8 Other specified noninflammatory disorders of vagina (principal)
CPT/HCPCS: 81513

== ENCOUNTER 2024-09-03 07:11 | Outpatient (CLI) | payer OTHER, SELFPAY ==
--- OUTSIDE RECORDS SUMMARY | 2024-09-03 07:13 | XMS_ITS | Referral Summary ---
Author Organization [facility] Virtual Care Address [address] [place] [phone] Phone Care Team Providers Care Economic Analyst Name Role Phone Germain Stearns Primary Care Provider Encounters Date Type Department Care Team Description 09/01/2024 Results Follow-Up [address] [address] Shelbie King NP Urine culture Urine, clean voided 08/27/2024 11:00 AM CDT Office Visit [facility] at [address] [phone] Shelbie King NP Well woman exam (Primary Dx); Stress incontinence, female; Vaginal odor from Last 3 Months Allergies No known active allergies Medications buPROPion SR (WELLBUTRIN SR) 150 mg 12 hr tablet Take 1 tablet (150 mg total) by mouth every 12 (twelve) hours 11/29/19 22 Active metFORMIN (GLUCOPHAGE) 1,000 mg tablet Take 1 tablet (1,000 mg total) by mouth 2 (two) times a day 11/29/19 22 Active Trulicity 3 mg/0.5 mL pen injector 06/06/[address] (PROTONIX) 40 mg EC tablet TAKE 1 TABLET B Y MOUTH EVERY MORNING FOR 6 WEEKS 12/12/19 23 Active ciprofloxacin (CIPRO) 500 mg tablet Take 1 tablet (500 mg total) by mouth 2 (two) times a day for 7 days 14 tablet 09/02/19 25 025 Active levonorgestreL (MIRENA) IUD 20 mcg by intrauterine route 025 Discontinued Active Problems No known active problems Social [...] Sign Reading Time Taken Comments Blood Pressure 124/80 08/27/2024 10:53 AM CDT Pulse 90 01/01/2023 8:10 AM CDT Temperature 37.3 C (99.1 F) 12/12/2021 12:25 PM CDT Respiratory Rate 16 12/12/2021 12:2 5 PM CDT Oxygen Saturation 100% 12/12/2021 12: 25 PM CDT Inhaled Oxygen Concentration - - Weight 89.3 kg (196 lb 12.8 oz) 025 10:53 AM CDT Height 162.6 cm (5' 4) 03/12/2024 2:49 PM ENGINEER STATION MAINLINE Body Mass Index 33.78 03/12/2024 2:49 PM ENGINEER STATION MAINLINE Plan of Treatment Not on file Medical Devices Implanted Type Area Leather Grader Device Identifier Shelf Expiration Date Model / Serial / Lot Bard Peripheral Vascular Ultraclip Bard 17ga 12cm 2 Trigger Permanent Ultrasound [id number] - [id number] - [id number] Implanted:Qty: 1 on 12/12/2021 by Dimitri Garcia MD at [facility] Breast Left: Breast Bard Peripheral Vascular 05/04/2024 [id number] / [id number] / Procedures Procedure Name Priority Date/Time Associated Diagnosis Comments POCT URINALYSIS DIPSTICK Routine 08/27/2024 11:46 AM CDT Stress incontinence, female URINE CULTURE Routine 08/27/2024 11:30 AM CDT Stress incontinence, female PAP AND HPV, REFLEX TO HPV GENOTYPES Routine 01/01/2023 9:28 AM CDT Well woman exam from Last 3 Months or Most Recently Relevant to Health Maintenance Results * (ABNORMAL) POCT urinalysis dipstick (08/27/2024 11:46 AM CDT) Color, Urine, POC Yellow Clarity, ur, POC Clear Clear Glucose, ur, POC 500.(A) Negative Bilirubin, ur, POC Negative Negative Ketones, ur, POC Trace(A) Negative Specific [place], POC 1.020 1.003 - 1.030 Blood, ur, POC Negative Negative pH, ur, POC 6.0 5.0 - 8.0 Protein, ur, POC Negative Negative Urobilinogen, urine, POC 0.2 0.2 - 1.0 mg/dL Nitrite, ur, POC Negative Negative Leukocytes, ur, POC Negative Negative Lot Number [id number] Urine 08/27/2024 11:4 6 AM CDT Shelbie King NP POINT OF CARE TEST ORDERABL ES Final Result * (ABNORMAL) Urine culture Urine, clean voided (08/27/2024 11:30 AM CDT) Source URINE, CLEAN CATCH Beni Singleton STATUS: FINAL Beni Singleton ISOLATE 1 10,000-49 ,000 CFU/mL of(A) Beni Singleton Comment: Klebsiella pneumoniae K.pneumoniae INT JAIDA AMOX/CLAVULANATE S <=2 AMP/SULBACTAM S 4 CEFAZOLIN NR <=4 2 CEFEPIME S <=0.12 CEFTAZIDIME S <=1 CEFTRIAXONE S <=0.25 CIPROFLOXACIN S <=0.06 GENTAMICIN S <=1 IMIPENEM S <=0.25 LEVOFLOXACIN S <=0.12 MEROPENEM S <=0.25 NITROFURANTOIN R 128 PIP/TAZOBACTAM S <=4 TRIMETHOPRIM/SULFA S <=20 Legend: S = Susceptible I = Intermediate R = Resistant NS = Not susceptible SDD = Susceptible Dose Dependent * = Not Tested NR = Not Reported NN = See Therapy Comments THERAPY COMMENTS Note 1: For infections other than uncomplicated UTI caused by E. coli, K. pneumoniae or P. mirabilis: Cefazolin is resistant if JAIDA > or = 8 mcg/mL. (Distinguishing susceptible versus intermediate for isolates with JAIDA < or = 4 mcg/mL requires additional testing.) Note 2: For uncomplicated UTI caused by E. coli, K. pneumoniae or P. mirabilis: Cefazolin is susceptible if JAIDA <32 mcg/mL and predicts susceptible to the oral agents cefaclor, cefdinir, cefpodoxime, cefprozil, cefuroxime, cephalexin and loracarbef. Urine, clean voided 08/27/2024 11:30 AM CDT 08/28/2024 12:04 AM CDT us Shelbie King SHEET METAL CONTRACTOR LAB MICROBIOLOGY - GENERAL ORDERABLES Final Result [place] [address] [address] [place] [place] [phone] * Pap and HPV, reflex to HPV Genotypes (01/01/2023 9:28 AM CDT) CLINICAL INFORMATION: [facility] Comment:None given LMP [facility] Comment:None given Previous Pap [facility] Comment:None given Prev. Bx [facility] [employer] [facility] Comment:None given SOURCE: [facility] Comment:Cervix, Endocervix Pap, specimen adequacy [facility] Comment: Satisfactory for evaluation. Endocervical/transformation zone component present. Age and/or menstrual status not provided HPV interp [facility] Comment: Cytology Results: Negative for intraepithelial lesion or malignancy. Threading Machine Operator [facility] Comment: BES, CT(ASCP) CT screening location: [place] [address] [address] [place] [address] Comment [facility] [employer] [facility] Comment: EXPLANATORY NOTE: The Pap is [...] Client Letter) showing TIS test codes, see www.[employer]/Resources, and navigate to Well-Woman>Physician Materials>TIS Client Letter. You can also call for test code assistance. Human papillomavirus DNA, High Risk E6/E7 Not Detected NOT DETECTED [facility] [place] Comment: Not Detected High Risk HPV types (16,18,31,33,35,39,45,51,52, 56,58,59,66,68) were not detected. Other HPV types which cause anogenital lesions may be present. The significance of the other types of HPV in malignant processes has not been established. Methodology: Real Time PCR Thin prep 01/01/2023 9:28 AM CDT 01/02/2023 2:54 AM CDT us Shelbie King SHEET METAL CONTRACTOR LAB CYTOLOGY ORDERABLES Fin al Result [facility] [address] [place] [address] [facility] [address] [place] [address] from Last 3 Months or Most Recently Relevant to Health Maintenance Insurance [facility] [facility] Care Teams Economic Analyst Relationship Specialty Start Date End Date Germain Stearns DO [address] [place] [address] PCP - General 12/12/21
--- OUTSIDE RECORDS SUMMARY | 2024-09-03 07:13 | XMS_ITS | Encounter Summary ---
Author Organization [facility] Healthcare Address [address] [place] [address] Care Team Providers Care Headend Technician Name Role Phone Germain Stearns DO Primary Care Provider Encounter Details Date Type Department Care Team (Late st Contact Info) Description 01/16/2022 Telephone [facility] [address] [place] [address] Nell Reyes, MARISA Social History Tobacco Use [...] on filedocumented in this encounter Care Teams Headend Technician Relationship Specialty Start Date End Date Germain Stearns DO [address] [place] [address] PCP - General 12/12/21 documented as of this encounter
--- OUTSIDE RECORDS SUMMARY | 2024-09-03 07:13 | XMS_ITS | Encounter Summary ---
Author Organization [facility] Healthcare Address [address] [place] [address] Care Team Providers Care Escort Service Attendant Name Role Phone Germain Stearns DO Primary Care Provider Encounter Details Date Type Department Care Team (Late st Contact Info) Description 09/01/2024 Results Follow-Up [facility] [address] [place] [address] [address] [place] [address] Shelbie King TANK TRUCK ENGINE MECHANIC [address] [place] [address] Urine culture Urine, clean voided Social History Tobacco Use Types Packs/Day Years Used Date Smoking Tobacco: Former Cigarettes PHQ-2 Answer Date Recorded PHQ-2 Total Score (If total score is 3 or more points, staff should administer the PHQ-9) 0 01/01/2023 Comments No Sex and Gender Information Value Date Recorded Sex Assigned at Not on file Legal Sex Female 11:22 AM CDT Gender Identity Not on file Sexual Orientation Not on file documented as of this encounter Ordered Prescriptions Prescription Sig Dispense Quantity Refills Last Filled Start Date End Date ciprofloxacin (CIPRO) 500 mg tablet Take 1 tablet (500 mg total) by mouth 2 (two) times a day for 7 days 14 tablet 09/01/2024 09/08/2024 documented in this encounter Miscellaneous Notes * Telephone Encounter - Zoë Beltran MA - 09/01/2024 9:29 AM CDT pt aware of urine resuls and will excelsior picker RX today * Telephone Encounter - Zoë Beltran MA - 09/01/2024 9:27 AM CDT ----- Message from Shelbie King NP sent at 09/01/2024 8:48 AM CDT ----- Please let July know urine culture did grow out bacteria! Let's send in Cipro 500 mg po bid x 7 days. Thanks! ----- Message ----- From: [facility] Results In Sent: 08/28/2024 4:05 PM CDT To: Shelbie King NP documented in this encounter Plan of Treatment Not on file documented as of this encounter Visit Diagnoses Not on filedocumented in this encounter Care Teams Escort Service Attendant Relationship Specialty Start Date End Date Germain Stearns DO [address] [place] [address] PCP - General 12/12/21 documented as of this encounter
--- OUTSIDE RECORDS SUMMARY | 2024-09-03 07:13 | XMS_ITS | Clinical Summary ---
Author Organization [facility] Virtual Care Address [address] [place] [phone] Phone Care Team Providers Care Broom Bundler Name Role Phone Germain Stearns DO Primary [...] Discontinued Active Problems No known active problems Encounters Date Type Department Care Team Description 09/01/2024 Results Follow-Up [address] [place] [address] Shelbie King NP Urine culture Urine, clean voided 08/27/2024 11:00 AM CDT Office Visit [facility] Medical [facility] at [address] [address] Shelbie King NP Well woman exam (Primary Dx); Stress incontinence, female; Vaginal odor from Last 3 Months Surgical History Surgery Date Site/Laterality Comments BREAST [...] Anes PTL Shanti A1 A5 Name Clin 2007 Term Vaginal Living 2009 Term Vaginal Living [...] 162.6 cm (5' 4) 03/12/2024 2:49 PM SALESPERSON TRAILERS AND MOTOR HOMES Body Mass Index 33.78 03/12/2024 2:49 PM SALESPERSON TRAILERS AND MOTOR HOMES Plan of Treatment Health Maintenance Due Date Last Done Comments Hepatitis C Screening 1986 DTaP/Tdap/Td Vaccine (1 - Tdap) 1997 Varicella Vaccines (1 of 2 - 13+ 2-dose series) 08/05/1999 Hepatitis B Screening 2004 HPV Vaccines (2 - 3-dose SCD M series) 02/24/2020 01/27/2020 Cervical Cancer Screening 01/02/2024 01/01/2023 Depression Screening 01/02/2024 01/01/2023 Influenza Vaccine (Season Ended) 2024 Regular Well Visit/Exam 18-64 08/27/2025, 01/01/2023 Pneumococcal vaccine <65 Aged Out No longer eligible based on patient's age to complete this topic Medical Devices Implanted Type Area Demand Planning Analyst Device Identifier Shelf Expiration Date Model / Serial / Lot Bard Peripheral Vascular Ultraclip Bard 17ga 12cm 2 Trigger Permanent Ultrasound [id number] - [id number] - [id number] Implanted:Qty: 1 on 12/12/2021 by Dimitri Garcia MD at [facility] Breast Left: Breast Bard Peripheral Vascular 05/04/2024 [id number] / Procedures Procedure Name Priority Date/Time Associated [...] Negative Ketones, ur, POC Trace(A) Negative Specific [place], POC 1.020 1.003 - 1.030 Blood, ur, POC Negative Negative pH, ur, POC 6.0 5.0 - 8.0 Protein, ur, POC Negative Negative Urobilinogen, urine, POC 0.2 0.2 - 1.0 mg/dL Nitrite, ur, POC Negative Negative Leukocytes, ur, POC Negative Negative Lot Number [id number] Urine 08/27/2024 11:4 6 AM CDT Shelbie King NP POINT OF CARE TEST ORDERABL ES Final Result * (ABNORMAL) Urine culture Urine, clean voided (08/27/2024 11:30 AM CDT) Source URINE, CLEAN CATCH Hyper Urban Level User [place] DiagnosticsLiana Singleton STATUS: FINAL Hyper Urban Level User [facility]ely[facility]a Singleton ISOLATE 1 10,000-49 ,000 CFU/mL of(A) Hyper Urban Level User [facility] Singleotn Comment: Klebsiella pneumoniae K.pneumoniae INT JAIDA AMOX/CLAVULANATE [...] 11:30 AM CDT 08/28/2024 12:04 AM CDT Shelbie King NP LAB MICROBIOLOGY - GENERAL ORDERABLES Final Result [facility] [address] [address]ANEL Duran [phone] * Pap and HPV, reflex to HPV Genotypes (01/01/2023 9:28 AM CDT) CLINICAL INFORMATION: [facility] Comment:None given LMP [facility] Comment:None given Previous Pap [facility] Comment:None given Prev. Bx [facility] Comment:None given SOURCE: [facility] Comment:Cervix, Endocervix Pap, specimen adequacy [facility] Comment: Satisfactory for evaluation. Endocervical/transformation zone component present. Age and/or menstrual status not provided HPV interp [facility] Comment: Cytology Results: Negative for intraepithelial lesion or malignancy. Tool Design Engineer Que [facility] Comment: BES, CT(ASCP) CT screening location: [place] [address] [address] JANEL Jackson [address] Comment [facility] Comment: EXPLANATORY NOTE: The Pap [...] Client Letter) showing TIS test codes, see [email or web address], and navigate to Well-Woman>Physician Materials>TIS Client Letter. You can also call for test code assistance. Human papillomavirus DNA, High Risk E6/E7 Not Detected NOT DETECTED [facility] [place] Comment: Not Detected High Risk HPV types (16,18,31,33,35,39,45,51,52, 56,58,59,66,68) were not detected. Other HPV types which cause anogenital lesions may be present. The significance of the other types of HPV in malignant processes has not been established. Methodology: Real Time PCR Thin prep 01/01/2023 9:28 AM CDT 01/02/2023 2:54 AM CDT Shelbie King MECHANICAL SHOVEL OPERATOR LAB CYTOLOGY ORDERABLES Fin al Result [facility] [address] [place] [address] [facility] [address] [facility] [place] [address] from Last 3 Months or Most Recently Relevant to Health Maintenance Insurance AETNA BETTER [facility] AETNA [facility] Care Teams Broom Bundler Relationship Specialty Start Date End Date Germain Stearns DO [address] [place] [address] PCP - General 12/12/21
[2024-09-03 07:28] LABS: Basophils Absolute Auto 0.03 K/mm3 (0.00-0.10); Basophils Percent Auto 0.3 % (0.0-1.0); Eosinophils Absolute Auto 0.11 K/mm3 (0.02-0.50); Eosinophils Percent Auto 1.2 % (1.0-6.0); Hematocrit 36.5 % (35.0-49.0); Hemoglobin 11.3 g/dL (12.0-15.0); Immature Granulocyte Absolute 0.03 K/mm3 (0.00-0.00); Immature Granulocyte Percent A 0.3 % (0.0-0.0); Lymphocytes Absolute Auto 1.83 K/mm3 (1.10-4.50); Lymphocytes Percent Auto 19.9 % (18.0-42.0); Mean Corpuscular Hemoglobin 25.9 pg (27.0-31.0); Mean Corpuscular Volume 83.7 fL (78.0-102.0); Mean Platelet Volume 11.4 fl (9.2-11.8); Monocytes Absolute Auto 0.64 K/mm3 (0.10-0.90); Neutrophils Absolute Auto 6.54 K/mm3 (1.70-7.20); Neutrophils Percent Auto 71.3 % (50.0-70.0); Platelet Count Result 252 K/mm3 (150-420); Red Blood Count 4.36 M/mm3 (4.20-5.40); Red Cell Distribution Width 14.5 % (11.6-14.4); White Blood Count 9.2 K/mm3 (4.8-10.8)
[2024-09-03 07:48] LABS: Iron 45 ug/dL (37-170); Magnesium 1.8 mg/dL (1.6-2.3)
[2024-09-03 07:56] LABS: Percent Iron Saturation 12 % (20-50)
[2024-09-03 08:55] LABS: Free T4 Free Thyroxine Reflex 1.16 ng/dL (0.78-2.19)
== END 2024-09-03 07:12 | disposition home or self-care (01) ==
PROVIDERS: PCP Nurse Practitioner Family; Visit Provider Nurse Practitioner Family
DX: R79.89 Other specified abnormal findings of blood chemistry (principal); E03.8 Other specified hypothyroidism; E83.42 Hypomagnesemia
CPT/HCPCS: 36415; 83540; 83550; 83735; 84439; 84443; 84480; 85025

== ENCOUNTER 2024-10-27 07:02 | Outpatient (CLI) | payer OTHER, SELFPAY ==
--- OUTSIDE RECORDS SUMMARY | 2024-10-27 07:05 | XMS_ITS | Encounter Summary ---
Author Organization [facility] Healthcare Address [address] [place] [address] Care Team Providers Care Diversional Therapist Name Role Phone Germain Stearns DO Primary Care Provider Encounter Details Date Type Department Care Team (Late st Contact Info) Description 09/01/2024 Results Follow-Up [facility] [address] [place] [address] [address] [place] [address] Shelbie King, PROCESS PLANT OPERATOR [address] [place] [address] Urine culture Urine, clean voided, Pap, reflex HPV Social History Tobacco Use Types Packs/Day Years [...] pt aware of urine resuls and will crop picker RX today * Telephone Encounter - Zoë Beltran MA - 09/01/2024 9:27 AM CDT ----- Message from Shelbie King NP sent at 09/01/2024 8:48 AM CDT ----- Please let July know urine culture did grow out bacteria! Let's send in Cipro 500 mg po bid x 7 days. Thanks! ----- Message ----- From: [facility] Lab Results In Sent: 08/28/2024 4:05 PM CDT To: Shelbie King NP documented in this encounter Plan of Treatment Not on file documented as of this encounter Visit Diagnoses Not on filedocumented in this encounter Care Teams Diversional Therapist Relationship Specialty Start Date End Date Germain Stearns DO [address] [place] [address] PCP - General 12/12/21 documented as of this encounter
--- OUTSIDE RECORDS SUMMARY | 2024-10-27 07:06 | XMS_ITS | Clinical Summary ---
Author Organization [facility] Virtual Care Address [address] [place] [phone] Phone Care Team Providers Care In House Cra Name Role Phone Germain Stearns DO Primary Care Provider Allergies No known active allergies Medications buPROPion SR (WELLBUTRIN SR) 150 mg 12 hr tablet Take 1 tablet (150 mg total) by mouth every 12 (twelve) hours 11/28/2021 Active metFORMIN (GLUCOPHAGE) 1,000 mg tablet Take 1 tablet (1,000 mg total) by mouth 2 (two) times a day 11/28/2021 Active Trulicity 3 mg/0.5 mL pen injector 06/05/[address] (PROTONIX) 40 mg EC tablet TAKE 1 TABLET B Y MOUTH EVERY MORNING FOR 6 WEEKS 12/11/2022 Active Active Problems No known active problems Encounters Date Type Department Care Team Description 09/01/2024 Results Follow-Up [address] [place] [address] Shelbie King NP Urine culture Urine, clean voided, Pap, reflex HPV 08/27/2024 11:00 AM CDT Office Visit [facility] Medical Group Women's Health Care at [address] [address] Shelbie King NP Well woman [...] 162.6 cm (5' 4) 03/12/2024 2:49 PM DIGITAL SOLUTION ARCHITECT Body Mass Index 33.78 03/12/2024 2:49 PM DIGITAL SOLUTION ARCHITECT Plan of Treatment Health Maintenance Due Date Last Done Comments Hepatitis C Screening 1986 DTaP/Tdap/Td Vaccine (1 - Tdap) 1997 Varicella Vaccines (1 of 2 - 13+ 2-dose series) 08/05/1999 Hepatitis B Screening 2004 HPV Vaccines (2 - 3-dose SCD M series) 02/24/2020 01/27/2020 Depression Screening 01/02/2024 01/01/2023 Influenza Vaccine (Season Ended) 2024 Cervical Cancer Screening 08/27/20252024, 01/01/2023 Regular Well Visit/Exam 18-64 08/27/2025, 01/01/2023 Pneumococcal vaccine <65 Aged Out No longer eligible based on patient's age to complete this topic Medical Devices Implanted Type Area Technical Marketing Consultant Device Identifier Shelf Expiration Date Model / Serial / Lot Bard Peripheral Vascular Ultraclip Bard 17ga 12cm 2 Trigger Permanent Ultrasound [id number] - [id number] - [id number] Implanted:Qty: 1 on 12/12/2021 by Dimitri Garcia MD at [facility] Breast Left: Breast Bard Peripheral Vascular 05/04/2024 [id number] / [id number] / Procedures Procedure Name Priority Date/Time Associated Diagnosis Comments POCT URINALYSIS DIPSTICK Routine 08/27/2024 11:46 AM CDT Stress incontinence, female URINE CULTURE Routine 08/27/2024 11:30 AM CDT Stress incontinence, female PAP, REFLEX HPV Routine 08/27/2024 10:59 AM CDT Well woman exam from Last 3 Months Results * (ABNORMAL) POCT urinalysis dipstick (08/27/2024 11:46 AM CDT) Color, Urine, POC Yellow Clarity, ur, POC Clear Clear Glucose, ur, POC 500.(A) Negative Bilirubin, ur, POC Negative Negative Ketones, ur, POC Trace(A) Negative Specific [place], POC 1.020 1.003 - 1.030 Blood, ur, POC Negative Negative pH, ur, POC 6.0 5.0 - 8.0 Protein, ur, POC Negative Negative Urobilinogen, urine, POC 0.2 0.2 - 1.0 mg/dL Nitrite, ur, POC Negative Negative Leukocytes, ur, POC Negative Negative Lot Number [id number] Urine 08/27/2024 11:4 6 AM CDT Shelbie King IN SCHOOL SUSPENSION AIDE POINT OF CARE TEST ORDERABL ES Final Result * (ABNORMAL) Urine culture Urine, clean voided (08/27/2024 11:30 AM CDT) Source URINE, CLEAN CATCH Beni Singleton STATUS: FINAL Beni Singleton ISOLATE 1 10,000-49 ,000 CFU/mL of(A) Primary Data Lewis Singleton Comment: Klebsiella pneumoniae K.pneumoniae INT JAIDA [...] 08/28/2024 12:04 AM CDT us Shelbie King NP LAB MICROBIOLOGY - GENERAL ORDERABLES Final Result [facility] [address] [address] JANEL Duran [address] * Pap, reflex HPV (08/27/2024 10:59 AM CDT) CLINICAL INFORMATION: [facility] Comment:A LMP [facility] Comment:A Previous Pap [facility] Comment:NONE GIVEN Prev. Bx [facility] Comment:NONE GIVEN SOURCE: [facility] Comment:Cervix, Endocervix Pap, specimen adequacy [facility] Comment: Satisfactory for evaluation. Endocervical/transformation zone component present. Age and/or menstrual status not provided HPV interp [facility] Comment: Cytology Results: Negative for intraepithelial lesion or malignancy. COMMENTS [facility] Comment: This Pap test has been evaluated with computer assisted technology. Executive Director Sheltered Workshop Angeli Barr [facility] Comment: FXL, CT(ASCP) CT screening location: [facility], [address] [place] [address] [place] [address] Mandrel Cleaner: REGINE BOB MD, CLIA: [id number] Comment [facility] Comment: EXPLANATORY NOTE: The Pap is a screening test for cervical cancer. It is not a diagnostic test and is subject to false negative and false positive results. It is most reliable when a satisfactory sample, regularly obtained, is submitted with relevant clinical findings and history, and when the Pap result is evaluated along with historic and current clinical information. Thin prep 08/27/2024 10:5 9 AM CDT 08/30/2024 3:05 AM CDT us Shelbie King IN SCHOOL SUSPENSION AIDE LAB CYTOLOGY ORDERABLES Fin al Result [facility] [address], [facility] [place] [address] from Last 3 Months Insurance AETNA BETTER [facility] AET[place]TER [place] Care Teams In House Cra Relationship Specialty Start Date End Date Germain Stearns DO [address] [place] [address] PCP - General 12/12/21
--- OUTSIDE RECORDS SUMMARY | 2024-10-27 07:06 | XMS_ITS | Referral Summary ---
Author Organization [facility] Virtual Care Address [address] [place] [phone] Phone Care Team Providers Care Technician Semiconductor Development Name Role Phone Germain Stearns DO Primary Care Provider Encounters Date Type Department Care Team Description 09/01/2024 Results Follow-Up [facility] [address], [place] [phone] Shelbie King NP Urine culture Urine, clean voided, Pap, reflex HPV 08/27/2024 11:00 AM CDT Office Visit [facility] Medical Group Women's Health Care at [address] [address] Shelbie King NP Well woman [...] 162.6 cm (5' 4) 03/12/2024 2:49 PM APPRENTICE PAINTER NECKTIES Body Mass Index 33.78 03/12/2024 2:49 PM APPRENTICE PAINTER NECKTIES Plan of Treatment Not on file Medical Devices Implanted Type Area Model Maker Scale Device Identifier Shelf Expiration Date Model / Serial / Lot Bard Peripheral Vascular Ultraclip Bard 17ga 12cm 2 Trigger Permanent Ultrasound [id number] - [id number] - [id number] Implanted:Qty: 1 on 12/12/2021 by Dimitri Garcia MD at [facility] Breast Left: Breast Bard Peripheral Vascular 05/04/2024 [id number] / [id number] / Procedures Procedure Name Priority Date/Time Associated [...] Negative Ketones, ur, POC Trace(A) Negative Specific [place], POC 1.020 1.003 - 1.030 Blood, ur, POC Negative Negative pH, ur, POC 6.0 5.0 - 8.0 Protein, ur, POC Negative Negative Urobilinogen, urine, POC 0.2 0.2 - 1.0 mg/dL Nitrite, ur, POC Negative Negative Leukocytes, ur, POC Negative Negative Lot Number [id number] Urine 08/27/2024 11:4 6 AM CDT Shelbie King NP POINT OF CARE TEST ORDERABL ES Final Result * (ABNORMAL) Urine culture Urine, clean voided (08/27/2024 11:30 AM CDT) Source URINE, CLEAN CATCH PBJ ConciergeLiana Singleton STATUS: FINAL Smart Balloon Lewis Singleton ISOLATE 1 10,000-49 ,000 CFU/mL of(A) [facility] ConciergeLiana Singleton Comment: Klebsiella pneumoniae K.pneumoniae INT JAIDA [...] LAB MICROBIOLOGY - GENERAL ORDERABLES Final Result [facility] [address] [place] [address] * Pap, reflex HPV (08/27/2024 10:59 AM CDT) CLINICAL INFORMATION: [facility] Comment:A LMP [facility] Comment:A Previous Pap [facility] Comment:NONE GIVEN Prev. Bx [facility] Comment:NONE GIVEN SOURCE: [facility] Comment:Cervix, Endocervix Pap, specimen adequacy [facility] Comment: Satisfactory for evaluation. Endocervical/transformation zone component present. Age and/or menstrual status not provided HPV interp [facility] Comment: Cytology Results: Negative for intraepithelial lesion or malignancy. COMMENTS [facility] Comment: This Pap test has been evaluated with computer assisted technology. Sales Program Manager Angeli Barr [facility] Comment: FXL, CT(ASCP) CT screening location: [facility], [address] [place] [address] [address] [place] [address] Rn Burn: REGINE BOB MD, CLIA: [id number] Comment [facility] Comment: EXPLANATORY NOTE: The Pap [...] 9 AM CDT 08/30/2024 3:05 AM CDT Shelbie King NP LAB CYTOLOGY ORDERABLES Fin al Result [facility] [address] [phone] from Last 3 Months Insurance [facility] Care Teams Technician Semiconductor Development Relationship Specialty Start Date End Date Germain Stearns DO [address] [place] [address] [facility] - General 12/12/21
--- OUTSIDE RECORDS SUMMARY | 2024-10-27 07:06 | XMS_ITS | Encounter Summary ---
Author Organization [facility] Healthcare Address [address] [place] [address] Care Team Providers Care Senior Technical Architect Name Role Phone Germain Stearns DO Primary Care Provider Encounter Details Date Type Department Care Team (Late st Contact Info) Description 01/16/2022 Telephone [facility] [address] [place] [phone] Nell Reyes, MARISA Social History Tobacco Use [...] on filedocumented in this encounter Care Teams Senior Technical Architect Relationship Specialty Start Date End Date Germain Stearns DO [address] [place] [address] PCP - General 12/12/21 documented as of this encounter
--- OUTSIDE RECORDS SUMMARY | 2024-10-27 07:06 | XMS_ITS | Clinical Summary ---
Author Organization [facility] Address [address] [place] [address] Care Team Providers Care Stock Pitcher Name Role Phone Susan Styles MD Primary Care Provider Allergies No known active allergies Medications metFORMIN [...] on file Legal Sex Female 9:22 PM SMALL BOAT ENGINEER Gender Identity Not on file Sexual Orientation Not on file Last Filed Vital Signs Vital Sign Reading Time Taken Comments Blood Pressure 121/78 05/13/2019 4:30 PM SMALL BOAT ENGINEER Pulse 85 05/13/2019 4:30 PM SMALL BOAT ENGINEER Temperature 36.2 C (97.2 F) 05/13/2019 3:00 PM SMALL BOAT ENGINEER Respiratory Rate 16 05/13/2019 4:30 PM SMALL BOAT ENGINEER Oxygen Saturation 94% 05/13/2019 4:30 PM SMALL BOAT ENGINEER Inhaled Oxygen Concentration - - Weight 88.5 kg (195 lb) 05/06/2019 10:55 AM SMALL BOAT ENGINEER Height 162.6 cm (5' 4) 05/06/2019 10:56 AM SMALL BOAT ENGINEER Body Mass Index 33.47 05/06/2019 10:55 AM SMALL BOAT ENGINEER Plan of Treatment Health Maintenance Due Date Last Done Comments Annual Physical 1989 Hepatitis C 2004 DTaP, Tdap and Td Vaccines ( 1 - Tdap) 2005 Hepatitis B Vaccines (1 of 3 - 19+ 3-dose series) 2005 Pneumococcal Vaccine: Pediat rics (0 to 5 Years) and At-Risk Patients (6 to 49 Years) (1 of 2 - PCV) 2005 HPV Vaccines (1 - 3-dose SCD M series) 2013 Cervical Cancer Screening Pa p with HPV Testing (Age 30 to 64) Every 5 Years 2016 Cervical Cancer Screening Pa p Smear (Age 30 to 64) Every 3 Years 09/23/2017 09/23/2014 Cervical Cancer Screening with HPV 09/23/2017 COVID-19 Vaccine (2023-2 5 season) 2023 Meningococcal B Vaccine Aged Out No l [...] 12:00 AM CDT) THIN PREP PAP (A) MEDO UP TO EPIC CONVERSION Comment: Patient Name: GLORIA GARCIA Specimen #: [id number] Procedure Date: 09/23/2014 /Age: 5 1985 (Age: 29) Gender: F Accessioned: 09/27/2014 Address: [address] [place] [address] Reported: 09/30/2014 Encounter: [id number] Location: [facility] Physician(s): KRISTINE URENA, ANNEALING OVEN OPERATOR / INFORMATION TECHNOLOGY PROGRAM MANAGER : CYTOPATHOLOGY - GYNECOLOGIC REPORT Diagnosis: TEST NAME: THINPREP PAP WITH SHIP WIRER, REFLEX HPV-ASCUS ONLY INTERPRETATION/RESULT: EPITHELIAL CELL ABNORMALITY: ATYPICAL SQUAMOUS CELLS OF UNDETERMINED SIGNIFICANCE. SPECIMEN FORWARDED TO MICROBIOLOGY FOR FURTHER HPV DNA EVALUATION. STATEMENT OF ADEQUACY: SATISFACTORY FOR EVALUATION; ENDOCERVICAL/TRANSFORMATION ZONE COMPONENT PRESENT. [facility] GARCIA MD [facility]/09/30/2014 Report Electronically Signed Procedures/Addenda HPV DNA: ABNORMAL Interpretation: HPV DNA, HIGH RISK: POSITIVE THIS HIGH-RISK HPV TEST DETECTS FOURTEEN HIGH-RISK TYPES (16, 18, 31, 33, 35, 39, 45, 51, 52, 56, 58, 59, 66, 68) WITHOUT DIFFERENTIATION. Monserrat Cortez HPV DNA Electronically Signed [facility] Specimen: THINPREP PAP WITH SHIP WIRER, REFLEX HPV-ASCUS ONLY Clinical Diagnosis and History [...] 4:01 PM 05/13/2019 6:48 PM Care Teams Stock Pitcher Relationship Specialty Start Date End Date Susan Styles MD [address] [place] [address] PCP - General INTERNAL MEDICINE 12/28/18
[2024-10-27 07:53] LABS: Hemoglobin A1C 7.2 % (<5.7)
[2024-10-27 09:19] LABS: Thyroid Stimulating Hormone Reflex 4.230 uIU/mL (0.465-4.68)
[2024-10-27 09:54] LABS: Free T4 Free Thyroxine Reflex 1.00 ng/dL (0.78-2.19)
== END 2024-10-27 07:03 | disposition home or self-care (01) ==
LOC: CHSLAB 07:03
PROVIDERS: PCP Nurse Practitioner Family; Visit Provider Nurse Practitioner Family
DX: E11.9 Type 2 diabetes mellitus without complications (principal); E03.8 Other specified hypothyroidism
CPT/HCPCS: 36415; 83036; 84439; 84443

== ENCOUNTER 2025-01-21 07:07 | Outpatient (CLI) | payer OTHER, SELFPAY ==
[2025-01-21 07:22] LABS: Hematocrit 38.9 % (35.0-49.0); Hemoglobin 12.2 g/dL (12.0-15.0); Mean Corpuscular HGB Conc 31.4 g/dL (32-36); Mean Corpuscular Hemoglobin 26.8 pg (27.0-31.0); Mean Corpuscular Volume 85.5 fL (78.0-102.0); Platelet Count Result 263 K/mm3 (150-420); Red Blood Count 4.55 M/mm3 (4.20-5.40); White Blood Count 9.8 K/mm3 (4.8-10.8)
[2025-01-21 08:09] LABS: Iron 62 ug/dL (37-170)
[2025-01-21 08:15] LABS: Hemoglobin A1C 7.8 % (<5.7)
[2025-01-21 08:19] LABS: Percent Iron Saturation 18 % (20-50)
[2025-01-25 17:40] LABS: Magnesium 1.9 mg/dL (1.6-2.3)
[2025-01-25 17:58] LABS: Free T4 Free Thyroxine 0.98 ng/dL (0.78-2.19)
[2025-01-25 18:12] LABS: Thyroid Stimulating Hormone Reflex 6.120 uIU/mL (0.465-4.68)
[2025-01-25 18:48] LABS: Free T4 Free Thyroxine Reflex 0.96 ng/dL (0.78-2.19)
== END 2025-01-21 07:08 | disposition home or self-care (01) ==
LOC: CHSLAB 07:07
PROVIDERS: PCP Nurse Practitioner Family; Visit Provider Nurse Practitioner Family
DX: K21.9 Gastro-esophageal reflux disease without esophagitis (principal); E03.8 Other specified hypothyroidism; E11.9 Type 2 diabetes mellitus without complications; E83.42 Hypomagnesemia; E55.9 Vitamin D deficiency, unspecified
CPT/HCPCS: 36415; 82306; 83036; 83540; 83550; 83735; 84439; 84443; 85027; 86376

== ENCOUNTER 2025-02-07 16:05 | Outpatient (CLI) | payer OTHER, SELFPAY ==
--- NOTE | ~2025-02-07 | XR_ITS ---
EXAMINATION: XR elbow LT min 3V, 02/07/2025 16:08 ROTARY SURFACE GRINDER HISTORY: M25.522 - Pain in left elbow COMPARISON: No comparisons available. Findings: No acute fracture or malalignment. No significant degenerative changes. Soft tissues unremarkable. Impression: No acute fracture or malalignment. Reviewed, dictated and finalized at location P. RY SURFACE GRINDER Impression: No acute fracture or malalignment.
--- OUTSIDE RECORDS SUMMARY | 2025-02-07 16:08 | XMS_ITS | Encounter Summary ---
Author Organization [facility] Healthcare Address [address] [place] [address] Care Team Providers Care Branch Sales And Service Representative Name Role Phone Germain Stearns DO Primary Care Provider Encounter Details Date Type Department Care Team (Late st Contact Info) Description 01/16/2022 Telephone [facility] [address] [place] [phone] Nell Reyes, MARISA Social History Tobacco Use [...] on filedocumented in this encounter Care Teams Branch Sales And Service Representative Relationship Specialty Start Date End Date Germain Stearns DO [address] [place] [address] PCP - General 12/12/21 documented as of this encounter
--- OUTSIDE RECORDS SUMMARY | 2025-02-07 16:08 | XMS_ITS | Clinical Summary ---
Author Organization [facility] Address [address] [place] [address] Phone Care Team Providers Care Vp Marketing Name Role Phone Kenneth Alacntar APRN, ZEENAT Primary Care Provider + Sukhdeep Casiano MD Unavailable Allergies No known active allergies Medications amphetamine-dex troamphetamine (ADDERALL) 15 MG Tablet Take 15 mg by mouth 2 times daily (before meals). TAKE 1 TABLET BY ORAL ROUTE EVERY DAY BEFORE BREAKFAST AND AT LUNCHTIME. 5 Active atorvastatin (LIPITOR) 20 MG Tablet Take 20 mg by mouth nightly. 5 Active Blood Glucose Monitoring Suppl (Contour Plus Blue) w/Device Kit 1 Each. As directed 5 Active buPROPion (WELLBUTRIN) 150 MG XL tablet Take 150 mg by mouth daily. 5 Active Trulicity 4.5 MG/0.5ML Solution Auto-injector 4.5 mg by Subcutaneous route once a week. 5 Active Jardiance 25 MG Tablet Take 25 mg by mouth daily. 5 Active Contour Plus Test Strip 100 Strips 3 times daily. USE TO TEST BEFORE MEALS AND AT BEDTIME 5 Active metFORMIN (GLUCOPHAGE) 1000 MG Tablet Take 1,000 mg by mouth 2 times daily. Active pantoprazole (PROTONIX) 40 MG Tablet Delayed Response Take 40 mg by mouth daily. Active vitamin B complex (DEXFOL) Tablet Take 1 Tablet by mouth daily. Active VITAMIN D PO Take by mouth. Ac tive MAGNESIUM PO Take by mouth. Ac tive Ferrous Sulfate (IRON PO) Take by mouth. Activ e potassium Active levothyroxine (SYNTHROID) 25 MCG Tablet Take 1 Tablet by mouth daily. 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); New medication added; Class 1 obesity due to excess calories with serious comorbidity and body mass index (BMI) of 34.0 to 34.9 in adult; Hyperglycemia Discharge Disposition: Discharged to home or Selfcare 01/31/2025 Travel from Last 3 Months Immunizations Immunization Administration Dates Next Due Human Papillomavirus (HPV) 9-valent Vaccine 01/06 Social History Tobacco Use Types Packs/Day Years Used Date Smoking Tobacco: Former Cigarettes 1 15.2 S tarted: 2007 Smokeless Tobacco: Never Tobacco Cessation:Counseling Given: Not Answered Comments Unknown Sex and Gender Information Value Date Recorded Sex Assigned at Not on file Legal Sex Female 9:28 AM CDT Gender Identity Female 01/31/2025 11:25 AM CDT Sexual Orientation Not on file Last Filed Vital Signs Vital Sign Reading Time Taken Comments Blood Pressure 124/64 01/31/2025 3:34 PM CDT Pulse 90 01/31/2025 3:34 PM CDT Temperature 36.3 C (97.4 F) 01/31/2025 3:34 PM CDT Respiratory Rate 22 01/31/2025 3:34 PM CDT Oxygen Saturation 99% 01/31/2025 3:34 PM CDT Inhaled Oxygen Concentration - - Weight 87.8 kg (193 lb 9.6 oz) 01/31/2025 3:34 P M CDT Height 160 cm (5' 3) 01/31/2025 3:34 PM CDT Body Mass Index 34.29 01/31/2025 3:34 PM CDT Plan of Treatment Upcoming Encounters Date Type Department Care Team (Late st Contact Info) Description 05/04/2025 3:45 PM RRT Office Visit [facility] - Endocrinology - [place] [address] [place] [address] Sukhdeep Casiano MD [address] [address] Health Maintenance Due Date Last Done Comments Hepatitis C Virus (HCV) Screening 1986 TdaP Immunization 1986 Hepatitis B Immunization (1 of 3 - 19+ 3-dose series) 2005 Pap Smear 08/05/2007 Cervical Cancer Screening (CCS) 2016 HPV/Cotest 2016 Human Papillomavirus (HPV) Immunization (2 - 3-dose SCDM series) 02/24/2020 01/27/2020 Influenza Immunization (#1) 2024 SARS-COV-2 Immunization ( - season) 2024 Respiratory Syncytial Virus (RSV) Immunization (Adult) (1 - 1-dose 75+ series) 2061 Meningococcal Immunization (ACWY) Aged Out No longer eligible based on patient's age to complete this topic Pneumococcal Immunization Combined Aged Out No longer eligible based on patient's age to complete this topic Rotavirus Immunization Aged Out No lo nger eligible based on patient's age to complete this topic Procedures Procedure Name Priority Date/Time Associated Diagnosis Comments POCT GLYCOSYLATED HEMOGLOBIN Routine 01/31/2025 3:45 PM CDT Class 1 obesity due to excess calories with serious comorbidity and body mass index (BMI) of 34.0 to 34.9 in adult Hyperglycemia from Last 3 Months Results * (ABNORMAL) POCT GLYCOSYLATED HEMOGLOBIN (01/31/2025 3:45 PM CDT) HGB-A1C 7.9(A) 4 - 6 % Blood 01/31/2025 3:45 PM CDT Sukhdeep Casiano MD POINT OF CARE TESTING (MANUAL) F inal Result from Last 3 Months Insurance MEDICAID AETNA [facility] Care Teams Vp Marketing Relationship Specialty Start Date End Date Kenneth Alcantar APRN, LOGGING CONTRACTOR [address] [place] [address] PCP - General Advanced Practice Nurse 01/31/25 Sukhdeep Casiano MD [address] [phone] Consulting Physician Endocrinology 01/31/25
--- OUTSIDE RECORDS SUMMARY | 2025-02-07 16:08 | XMS_ITS | Clinical Summary ---
Author Organization [facility] Address [address] [place] [address] Care Team Providers Care Drama Teacher Name Role Phone Susan Styles MD Primary Care Provider [phone] Allergies No known active allergies Medications metFORMIN [...] on file Legal Sex Female 9:22 PM FLIGHT LINE SERVICE ATTENDANT Gender Identity Not on file Sexual Orientation Not on file Last Filed Vital Signs Vital Sign Reading Time Taken Comments Blood Pressure 121/78 05/13/2019 4:30 PM FLIGHT LINE SERVICE ATTENDANT Pulse 85 05/13/2019 4:30 PM FLIGHT LINE SERVICE ATTENDANT Temperature 36.2 C (97.2 F) 05/13/2019 3:00 PM FLIGHT LINE SERVICE ATTENDANT Respiratory Rate 16 05/13/2019 4:30 PM FLIGHT LINE SERVICE ATTENDANT Oxygen Saturation 94% 05/13/2019 4:30 PM FLIGHT LINE SERVICE ATTENDANT Inhaled Oxygen Concentration - - Weight 88.5 kg (195 lb) 05/06/2019 10:55 AM FLIGHT LINE SERVICE ATTENDANT Height 162.6 cm (5' 4) 05/06/2019 10:56 AM FLIGHT LINE SERVICE ATTENDANT Body Mass Index 33.47 05/06/2019 10:55 AM FLIGHT LINE SERVICE ATTENDANT Plan of Treatment Health Maintenance Due Date [...] Cancer Screening with HPV 09/23/2017 COVID-19 Vaccine (2024-2 6 season) 2024 Influenza Adult (#1) 2025 Hepatitis A Vaccines Aged Out No long er eligible based on patient's age to complete [...] 12:00 AM CDT) [facility] Comment: Patient Name: GLORIA GARCIA Specimen #: [id number] Procedure Date: 09/23/2014 /Age: 5 1985 (Age: 29) Gender: F Accessioned: 09/27/2014 Address: [address] [place] [id number] Reported: 09/30/2014 Encounter: [id number] [facility]: [facility] Physician(s): KRISTINE UERNA, BRIM PLATER / BUFFER NICKEL : CYTOPATHOLOGY - GYNECOLOGIC REPORT Diagnosis: TEST NAME: THINPREP PAP WITH PLASTER LATHER, REFLEX HPV-ASCUS ONLY INTERPRETATION/RESULT: EPITHELIAL CELL ABNORMALITY: ATYPICAL SQUAMOUS CELLS OF UNDETERMINED SIGNIFICANCE. SPECIMEN FORWARDED TO MICROBIOLOGY FOR FURTHER HPV DNA EVALUATION. STATEMENT OF ADEQUACY: SATISFACTORY FOR EVALUATION; ENDOCERVICAL/TRANSFORMATION ZONE COMPONENT PRESENT. [facility] DEN GARCIA MD [facility] [place]/09/30/2014 Report Electronically Signed Procedures/Addenda HPV DNA: ABNORMAL Interpretation: HPV DNA, HIGH RISK: POSITIVE THIS HIGH-RISK HPV TEST DETECTS FOURTEEN HIGH-RISK TYPES (16, 18, 31, 33, 35, 39, 45, 51, 52, 56, 58, 59, 66, 68) WITHOUT DIFFERENTIATION. Monserrat Cortez HPV DNA Electronically Signed [facility]/ 10/07/2014 Specimen: THINPREP PAP WITH PLASTER LATHER, REFLEX HPV-ASCUS ONLY Clinical Diagnosis and History [...] patient was manually matched. us Kristine Urena INSURANCE SALES MANAGER PATHOLOGY/CYTOLOGY ORDERABLES E dited Result - Final [facility] TO EPIC CONVERSION from Last 3 Months or Most Recently Relevant to Health Maintenance Insurance MEDICAID Advance Directives * Full Code (Latest Code Status on File) Date Activated Date Inactivated Comments 05/13/2019 4:01 PM 05/13/2019 6:48 PM Care Teams Drama Teacher Relationship Specialty Start Date End Date Susan Styles MD [address] [place] [address] PCP - General INTERNAL MEDICINE 12/28/18
--- OUTSIDE RECORDS SUMMARY | 2025-02-07 16:09 | XMS_ITS | Clinical Summary ---
Author Organization [facility] Virtual Care Address [address] [place] [phone] Phone Care Team Providers Care Aerospace Project Manager Name Role Phone Germain Stearns DO Primary [...] Date Comments Smoking Type 2 diabetes mellitus 2018 Family History * Patient is adopted [...] 162.6 cm (5' 4) 03/12/2024 2:49 PM OD GRINDER OPERATOR Body Mass Index 33.78 03/12/2024 2:49 PM OD GRINDER OPERATOR Plan of Treatment Health Maintenance Due Date Last Done Comments Hepatitis C Screening 1986 DTaP/Tdap/Td Vaccine (1 - Tdap) 1997 Varicella Vaccines (1 of 2 - 13+ 2-dose series) 08/05/1999 Hepatitis B Screening 2004 HPV Vaccines (2 - 3-dose SCD M series) 02/24/2020 01/27/2020 Depression Screening 01/02/2024 01/01/2023 Influenza Vaccine (#1) 2024 Cervical Cancer Screening 08/27/20252024, 01/01/2023 Regular Well Visit/Exam 18-64 08/27/2025, 01/01/2023 Pneumococcal vaccine <65 Aged Out No longer eligible based on patient's age to complete this topic Medical Devices Implanted Type Area Fisheries Diver Device Identifier Shelf Expiration Date Model / Serial / Lot Bard Peripheral Vascular Ultraclip Bard 17ga 12cm 2 Trigger Permanent Ultrasound [id number] - [id number] - [id number] Implanted:Qty: 1 on 12/12/2021 by Dimitri Garcia MD at [facility] Breast Left: Breast Bard Peripheral Vascular 05/04/2024 [id number] / [id number] / Procedures Procedure Name Priority Date/Time Associated Diagnosis Comments PAP, REFLEX HPV Routine 08/27/2024 10:59 AM CDT Well woman exam from Last 3 Months or Most Recently Relevant to Health Maintenance Results * Pap, reflex HPV (08/27/2024 10:59 AM CDT) CLINICAL INFORMATION: [facility] Comment:A LMP [facility] Comment:A Previous Pap [facility] Comment:NONE GIVEN Prev. Bx [facility] Comment:NONE GIVEN SOURCE: [facility] Comment:Cervix, Endocervix Pap, specimen adequacy [facility] Comment: Satisfactory for evaluation. Endocervical/transformation zone component present. Age and/or menstrual status not provided HPV interp [facility] Comment: Cytology Results: Negative for intraepithelial lesion or malignancy. COMMENTS [facility] Comment: This Pap test has been evaluated with computer assisted technology. Computer Application Developer Angeli Barr [facility] Comment: FXL, CT(ASCP) CT screening location: [facility], [address] [place] [address] [address], [place] [address] Help Desk Operator: REGINE BOB MD, CLIA: [id number] Comment [facility] Comment: EXPLANATORY NOTE: The Pap is [...] CDT 08/30/2024 3:05 AM CDT Shelbie King FINANCIAL AGENT LAB CYTOLOGY ORDERABLES Fin al Result [facility] [address] [facility], [place] [address] from Last 3 Months or Most Recently Relevant to Health Maintenance Insurance AETNA [facility] AETNA [facility] Care Teams Aerospace Project Manager Relationship Specialty Start Date End Date Germain Stearns [place] [address] PCP - General 12/12/21
== END 2025-02-07 16:06 | disposition home or self-care (01) ==
LOC: CHSIMG 16:06
PROVIDERS: PCP Nurse Practitioner Family; Visit Provider Nurse Practitioner Family
DX: M25.522 Pain in left elbow (principal)
CPT/HCPCS: 73080

== ENCOUNTER 2025-03-15 07:08 | Outpatient (CLI) | payer OTHER, SELFPAY ==
--- OUTSIDE RECORDS SUMMARY | 2025-03-15 07:12 | XMS_ITS | Clinical Summary ---
Author Organization [facility] Address [address] [place] [address] Phone Care Team Providers Care Ballet Company Member Name Role Phone Kenneth Alcantar APRN, ZEENAT Primary Care Provider + Sukhdeep [...] Office Visit [facility] [address] [place] [address] Sukhdeep Casiano MD Hypothyroidism due [...] st Contact Info) Description 05/04/2025 3:45 PM ELECTRIC METER READER Office Visit [facility] - Endocrinology - [place] [address] [place] [address] Sukhdeep Casiano MD [address] [address] Health Maintenance Due Date Last Done Comments Hepatitis C Virus (HCV) Screening 1985 TdaP Immunization 1986 Varicella Immunization (1 of 2 - 13+ 2-dose series) 08/05/1999 Hepatitis B Immunization (1 of 3 - 19+ 3-dose series) 2005 Pap Smear 08/05/2007 Cervical Cancer Screening (CCS) 2016 HPV/Cotest 2016 Human Papillomavirus (HPV) Immunization (2 - 3-dose SCDM series) 02/24/2020 01/27/2020 Influenza Immunization (#1) 2024 SARS-COV-2 Immunization ( season) 2024 Respiratory Syncytial Virus (RSV) Immunization [...] 6 % Blood 01/31/2025 3:45 PM CDT us Sukhdeep Casiano MD POINT OF CARE TESTING (MANUAL) F inal Result from Last 3 Months Insurance MEDICAID AETNA [facility] Care Teams Ballet Company Member Relationship Specialty Start Date End Date Kenneth Alcantar APRN, LAST REMODELER REPAIRER [address] [place] [address] PCP - General Advanced Practice Nurse 01/31/25 Sukhdeep Casiano MD [address] [phone] Consulting Physician Endocrinology 01/31/25
--- OUTSIDE RECORDS SUMMARY | 2025-03-15 07:14 | XMS_ITS | Encounter Summary ---
Author Organization [facility] Healthcare Address [address] [place] [address] Care Team Providers Care Brass And Wind Instrument Repairer Name Role Phone Germain Stearns DO Primary Care Provider Encounter Details Date Type Department Care Team (Late st Contact Info) Description 01/16/2022 Telephone [facility] [address] [place] [address] Nell Reyes RN Social History Tobacco Use Types Packs/Day Years [...] on filedocumented in this encounter Care Teams Brass And Wind Instrument Repairer Relationship Specialty Start Date End Date Germain Stearns DO [address] [place] [address] PCP - General 12/12/21 documented as of this encounter
--- OUTSIDE RECORDS SUMMARY | 2025-03-15 07:15 | XMS_ITS | Clinical Summary ---
Author Organization [facility] Virtual Care Address [address] [place] [phone] Phone Care Team Providers Care Bilingual Branch Manager Name Role Phone Germain Stearns Primary Care Provider Allergies No known active [...] 162.6 cm (5' 4) 03/12/2024 2:49 PM OYSTER PICKER Body Mass Index 33.78 03/12/2024 2:49 PM OYSTER PICKER Plan of Treatment Health Maintenance Due Date [...] this topic Medical Devices Implanted Type Area Rigger Chief Device Identifier Shelf Expiration Date Model / Serial / Lot Bard Peripheral Vascular Ultraclip Bard 17ga 12cm 2 Trigger Permanent Ultrasound [id number] - [id number] - [id number] Implanted:Qty: 1 on 12/12/2021 by Dimitri Garcia MD at [facility] Breast Left: Breast Bard Peripheral Vascular 05/04/2024 [id number] / [id number] / Procedures Procedure Name Priority Date/Time Associated Diagnosis Comments PAP, REFLEX HPV Routine 08/27/2024 10:59 AM CDT Well woman exam from Last 3 Months or Most Recently Relevant to Health Maintenance Results * Pap, reflex HPV (08/27/2024 10:59 AM CDT) CLINICAL INFORMATION: [facility] Comment:A LMP [facility] Comment:A Previous Pap [facility] Comment:NONE GIVEN Prev. Bx [facility] Comment:NONE GIVEN SOURCE: [facility] Comment:Cervix, Endocervix Pap, specimen adequacy [facility] Comment: Satisfactory for evaluation. Endocervical/transformation zone component present. Age and/or menstrual status not provided HPV interp [facility] Comment: Cytology Results: Negative for intraepithelial lesion or malignancy. COMMENTS [facility] Comment: This Pap test has been evaluated with computer assisted technology. Spinning Machine Operator Angeli Barr [facility] Comment: FXL, CT(ASCP) CT screening location: [facility], [address] [place] [address] [address], [place] [address] Clinic Licensed Practical Nurse: REGINE BOB MD, CLIA: [id number] Comment [facility] Comment: EXPLANATORY NOTE: The Pap [...] CDT 08/30/2024 3:05 AM CDT Shelbie King INSTRUMENT MAINTENANCE SUPERVISOR LAB CYTOLOGY ORDERABLES Fin al Result [facility] [address] [place] [phone] from Last 3 Months or Most Recently Relevant to Health Maintenance Insurance AETNA [facility]TER [facility] Care Teams Bilingual Branch Manager Relationship Specialty Start Date End Date Germain Stearns DO [address] [place] [address] [facility] - General 12/12/21
[2025-03-15 08:08] LABS: Free T4 Free Thyroxine 1.14 ng/dL (0.78-2.19)
[2025-03-15 08:22] LABS: Thyroid Stimulating Hormone 3.600 uIU/mL (0.465-4.680)
== END 2025-03-15 07:09 | disposition home or self-care (01) ==
PROVIDERS: PCP Nurse Practitioner Family
DX: R76.89 Other specified abnormal immunological findings in serum (principal); E06.3 Autoimmune thyroiditis
CPT/HCPCS: 36415; 84439; 84443